=== PATIENT | male | born 1980 | race Two or more races ===

== ENCOUNTER 2022-06-18 07:57 | Emergency (ER) | payer MEDICAID, OTHER, SELFPAY ==
--- NOTE | 2022-06-18 | ECG_ITS ---
Test Reason : sob Blood Pressure : / mmHG Vent. Rate : 074 BPM Atrial Rate : 074 BPM P-R Int : 128 ms QRS Dur : 082 ms QT Int : 372 ms P-R-T Axes : 046 028 026 degrees QTc Int : 412 ms Sinus rhythm with Sinus Arrhythmia Normal ECG No previous ECGs available Referred By: Generic ED Physician Electronically Signed By:MANDA HERRING
--- NOTE | ~2022-06-18 | CT_ITS ---
EXAMINATION: CT ANGIOGRAM OF THE CHEST WITH AND WITHOUT CONTRAST (CT PULMONARY ANGIOGRAM FOR PE) CLINICAL INFORMATION: Sudden onset right posterior chest pain. Rule out pneumonia. COMPARISON: None TECHNIQUE: Prior to contrast administration, noncontrast localization images were obtained. Subsequently, multidetector volumetric imaging was performed from the thoracic inlet to below the diaphragms following the administration of 85 mL Omnipaque 350 intravenous contrast. No contrast reaction reported. Sagittal, coronal, and MIP oblique sagittal reformatted images were obtained on the CT workstation, uploaded to PACS, and reviewed. This CT examination was performed using dose optimization techniques as appropriate, variously including the following: *Automated exposure control *Adjustment of mA and/or kV according to patient size (this includes techniques or standardized protocols for targeted exams where dose is matched to indication/reason for exam; i.e. extremities or head) *Use of iterative reconstruction technique Total exam dose-length product 374 mGy-cm. FINDINGS: QUALITY OF STUDY/CONTRAST BOLUS: Suboptimal. The pulmonary arteries are the least enhanced vascular structures in the chest. PULMONARY ARTERIES: No central or large segmental pulmonary emboli. This study is limited because of the poor contrast bolus. THORACIC AORTA: No aneurysm or dissection. LUNG: A few calcified granulomas are present. No focal consolidation, worrisome nodules or masses. PLEURA: No pleural effusion or pneumothorax. MEDIASTINUM: Normal heart size. No pericardial effusion. No hilar or mediastinal lymphadenopathy. No evidence of septal bowing or right heart strain. CHEST WALL/AXILLA: No axillary or internal mammary lymphadenopathy. OSSEOUS STRUCTURES: No acute or suspicious osseous abnormality. UPPER ABDOMEN: The liver is enlarged and there is marked hepatic steatosis. No reflux of contrast into the hepatic veins to suggest elevated right heart pressures. CT/CT angio chest PE protocol IMPRESSION: 1. Limited study because of poor contrast bolus. No central or large segmental pulmonary emboli are seen. 2. Enlarged fatty liver. VTE: Negative, but limited.
--- NOTE | ~2022-06-18 | CT_ITS ---
EXAMINATION: CT HEAD WITHOUT CONTRAST CLINICAL INFORMATION: Right arm weakness. COMPARISON: None available. TECHNIQUE: Contiguous axial imaging was performed from the skull base to vertex without intravenous administration of contrast. This CT examination was performed using dose optimization techniques as appropriate, variously including the following: *Automated exposure control. *Adjustment of mA and/or kV according to patient size (this includes techniques or standardized protocols for targeted exams where dose is matched to indication/reason for exam; i.e. extremities or head). *Use of iterative reconstruction technique. DLP: 763 mGy-cm FINDINGS: Residual contrast is present from recent CTA of the chest. There is no evidence of acute intracranial hemorrhage or edematous territorial infarction. Lindsey-white matter differentiation is preserved. There is no abnormal attenuation within the brain parenchyma. The ventricles are normal in morphology and size. No evidence for obstructive hydrocephalus. Mild prominence of the CSF space posterior to the left cerebellar hemisphere. No additional abnormal mass effect or midline shift. No extra-axial fluid collections. No acute soft tissue or osseous abnormalities. Moderate mucosal thickening of the right maxillary sinus. Mild mucosal thickening of the remaining paranasal sinuses. The mastoid air cells and middle ear cavities are clear. CT/CT head/brain wo IV con IMPRESSION: No evidence of acute intracranial hemorrhage or edematous territorial infarction.
--- NOTE | ~2022-06-18 | CT_ITS ---
EXAMINATION: CT ABDOMEN AND PELVIS WITH CONTRAST CLINICAL INFORMATION: Sudden onset epigastric, RUQ pain COMPARISON: None TECHNIQUE: Multidetector volumetric images were obtained from the superior aspect of the liver through the pubic symphysis following administration 85 mL of Omnipaque 350 intravenous contrast. Sagittal and coronal reformatted images were obtained on the technologist's workstation. Oral contrast: No This CT examination was performed using dose optimization techniques as appropriate, variously including the following: *Automated exposure control *Adjustment of mA and/or kV according to patient size (this includes techniques or standardized protocols for targeted exams where dose is matched to indication/reason for exam; i.e. extremities or head) *Use of iterative reconstruction technique DLP: 720 mGy-cm FINDINGS: LUNG BASES: The visualized lung bases are unremarkable. LIVER, GALLBLADDER, AND BILIARY TREE: The liver is enlarged at 20 cm in greatest cephalocaudad dimension decreased attenuation consistent with hepatic steatosis. No focal hepatic lesion or biliary ductal dilatation is present. The gallbladder is unremarkable with no evidence of radiopaque gallstones, gallbladder wall thickening, or obvious pericholecystic inflammatory changes. PANCREAS: Unremarkable. SPLEEN: Unremarkable. ADRENAL GLANDS: Unremarkable. KIDNEYS AND URETERS: The kidneys are normal in size, shape, and attenuation. No hydronephrosis, hydroureter, or calculi seen. No perinephric stranding. BLADDER: Unremarkable. GASTROINTESTINAL TRACT: The small and large bowel are unremarkable aside from a few scattered colonic diverticula without diverticulitis. The appendix is unremarkable. ABDOMINAL WALL: No significant hernia is appreciated. LYMPH NODES: No retroperitoneal lymphadenopathy. VASCULAR: Unremarkable. PELVIC VISCERA: The prostate and seminal vesicles are unremarkable. OSSEOUS STRUCTURES: Unremarkable. CT/CT abdomen pelvis w IV con IMPRESSION: 1. Enlarged fatty liver. 2. A cause for the patient's acute epigastric pain has not been found. Fleischner guidelines were followed.
[2022-06-18 08:00] VITALS: BP 173/112; PULSE 84; RESP 18; TEMP 36.9; O2SAT 95; BMI 35.0
[2022-06-18 08:34] LABS: COVID-19 Test Negative (Negative); IDNOW Serial# 9DB6401D
[2022-06-18 09:02] LABS: Influenza A PCR NEGATIVE (Negative); Influenza B PCR NEGATIVE (Negative); Resp Syncy Virus RNA Qual PCR NEGATIVE (Negative); SARS COV2 PCR INHOUSE NEGATIVE (Negative)
--- NOTE | 2022-06-18 09:14 | PC.NURSE ---
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 No respiratory distress noted will CTM
--- NOTE | 2022-06-18 09:32 | PC.NURSE ---
ABD firm non tender no guarding noted BS quad x 4 IV access obtained will CTM
--- NOTE | 2022-06-18 09:43 | ED.GENADULT ---
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 Patient states the pain started suddenly last night at around 22:00 hours while he was lying in bed. He states the pain is a constant, pressure-like pain. The pain is located in his epigastric and right upper quadrant also in his right scapular area. The pain is 8/10. States the pain is been constant, pain is worse if he lies down flat and is also worse with breathing. He does feel short of breath with the pain. This is 1st episode of this type of pain. He did take TheraFlu without any relief. He states that he has had a subjective fever, rhinorrhea and a cough which is occasionally productive of thick white phlegm. He had 1 episode of nausea yesterday but this resolved. He states that since he has been in the emergency department he felt numbness of his right hand but this also resolved. The patient denies any pain or swelling in his lower extremities, he has not had any recent surgeries or gone on any long trips. Related Data Previous Rx's Medication Instructions Recorded lorazepam 1 mg tablet (Ativan) 1 mg PO BEDTIME PRN Anxiety, 06/18/22 insomnia #10 tabs omeprazole 20 mg tablet,delayed 20 mg PO DAILY #30 tabs 06/18/22 release Allergies Allergy/AdvReac Type Severity Reaction Status Date / Time No Known Allergies Allergy Verified 06/18/22 08:06 Review of Systems Review of Systems: Yes all other systems are reviewed and are negative [facility] Past Medical History [facility] Narrative: Past medical history: None. Past surgical history: Kidney stones requiring removal, social history: He denies tobacco use, he drinks alcohol on weekends, he denies drug use. Social History Social History Alcohol intake: unknown Advance Directives: No Advance Directives Information Provided: Yes Physical Exam ED Vital Signs: Vital Signs - 24 hr 06/18/22 08:00 06/18/22 14:22 06/18/22 16:12 Temperature 98.4 F 98.6 F Pulse Rate 84 69 77 Respiratory Rate 18 21 H 18 Blood Pressure 173/112 H 167/79 H 131/89 Pulse Oximetry 95 98 97 Oxygen Delivery Method Room Air Room Air Room Air BMI result Body Mass Index 35.0 Const Other: Awake, alert, male patient, pleasant, cooperative he does appear to be anxious, he has no distress, answers all questions appropriately [facility] Head: Yes normal to inspection, Yes normocephalic and Yes atraumatic Ears: external ears normal General nose exam: Normal external nose present Face and sinus: Yes normal facial exam Mouth: Normal oral and palatal mucosa present Throat: Yes posterior oropharynx normal Eyes General: appearance normal, both eyes and all related structures Pupils: Equal, round and reactive pupils present Neck Neck: Yes normal visual inspection, Yes no lymphadenopathy, Yes trachea midline and Yes supple Chest Other: Patient does have tenderness palpation of his posterior chest around the scapular area Resp Effort & Inspection: normal respiratory effort and able to speak in complete sentences Auscultation: clear to auscultation bilaterally Cardio Rate: regular rate Rhythm: regular rhythm Heart sounds: S1 normal heart sound present, S2 normal heart sound present and no murmurs GI Inspection: Yes normal to inspection Palpation (GI): Soft to palpation, Tenderness to palpation present (GI) in the epigastrum (Moderate) and in the RUQ (Moderate) and no guarding Auscultation: normal bowel sounds General: Yes no CVA tenderness Back/Spine/Pelvis Back: no CVA tenderness Skin General skin exam: no rashes or lesions noted Neuro Cranial nerves: Yes CN's II-XII intact bilaterally and Yes Equal, round and reactive pupils present Cognition (Neuro): normal cognition Motor exam (neuro): 5/5 motor strength present throughout Extrem General: Yes normal to inspection Psych Appearance: grossly normal Speech and movement: Normal speech and movement present Affect: normal affect Attitude: cooperative Thought process: Normal thought process present Thought content: Normal thought content present Medications Administered Discontinued Medications Generic Name Dose Route Start Last Admin Trade Name Freq PRN Reason Stop Dose Admin Sodium Chloride 1,000 mls @ 999 mls/hr 06/18/22 10:00 06/18/22 12:38 Ns IV 06/18/22 11:00 Infused .Q1H1M STA Infusion Iohexol 100 ml 06/18/22 11:30 06/18/22 11:30 Iohexol 350 Mg/Ml 100 Ml Infus..Btl IV 06/18/22 11:31 85 ml ONCE ONE Administration Ketorolac Tromethamine 15 mg 06/18/22 10:00 06/18/22 10:15 Ketorolac Tromethamine 15 Mg/Ml Vial IVPUSH 06/18/22 10:01 15 mg ONCE STA Administration Lorazepam 2 mg 06/18/22 14:38 06/18/22 15:09 Lorazepam 1 Mg Tablet PO 06/18/22 14:39 2 mg ONCE STA Administration Ondansetron HCl 4 mg 06/18/22 10:00 06/18/22 10:15 Ondansetron Hcl 4 Mg/2 Ml Vial IVPUSH 06/18/22 10:01 4 mg ONCE ONE Administration Medical Decision Making Medical Decision Making MDM Narrative: 41-year-old male with no significant past medical history except for kidney stones who presents emergency department for evaluation of sudden onset of epigastric, right upper quadrant and right posterior chest pain at 22:00 hours while he was at rest. The pain is been a constant pain, 8/10. The pain is worse with breathing and is also worse with lying down flat. I ordered a CBC, CMP, CK, D-dimer, lipase, PT/INR, PTT, troponin, EKG, CT scan of the chest PE protocol, CT scan of the abdomen pelvis IV contrast. Patient was ordered to get ibuprofen 15 mg IV and Zofran 4 mg IV. I also ordered normal saline x1 L. 1624: Laboratory/radiology interpretation by me as follows: CBC was normal, CMP revealed an elevated AST and ALT of 7163, troponin was below detectable limits, flu, RSV and COVID were negative, D-dimer was below detectable limits. CT angiogram PE protocol chest and CT abdomen pelvis with IV contrast did not reveal a clear etiology for the patient's symptoms. When I review these results with the patient patient seemed to become anxious and told me that he had a fall struck his head and concerned that he has bleeding his brain. He states the cyst has he feels like his arms are twitching control controlled. CT scan of the patient's head was negative. Patient did receive Ativan 2 mg orally with some improvement of his symptoms. This time the patient will be treated for gastritis with omeprazole 20 mg once a day for 1 month and anxiety with Ativan 1 mg at night for 1 week. I did discuss this plan with the patient he agrees with the treatment. Patient will be discharged home. Differential Diagnosis Differential diagnosis includes but is not limited to pulmonary embolism, myocardial infarction, myocardial ischemia, kidney stone, biliary disease. Lab Data Result Diagrams: 06/18/22 10:15 06/18/22 10:15 Labs: Lab Results 06/18/22 06/18/22 06/18/22 Range/Units 08:15 08:15 10:15 WBC 5.8 (4.8-10.8) X10*3/uL RBC 4.74 (4.60-5.80) X10*6/uL Hgb 15.7 (14.0-18.0) g/dl Hct 45.2 (42.0-52.0) % MCV 95.4 (80.0-98.0) fL MCH 33.1 H (27.0-33.0) pg MCHC 34.7 (31.0-36.0) g/dl RDW 12.4 (11.0-16.0) % Plt Count 329 (160-400) X10*3/uL MPV 10.1 (9.4-12.4) fL Immature Gran % (Auto) 0.2 (0.0-0.4) % Neut % (Auto) 68.2 (45-73) % Lymph % (Auto) 23.2 (20-40) % [place] % (Auto) 7.2 (2-11) % Eos % (Auto) 0.5 (0-4) % Baso % (Auto) 0.7 (0-2) % Lymph # (Auto) 1.4 (1.2-4.9) X10*3/uL [place] # (Auto) 0.4 (0.1-1.2) X10*3/uL Eos # (Auto) 0.0 (0.0-0.4) X10*3/uL Baso # (Auto) 0.0 (0.0-0.2) X10*3/uL Abs Immat Gran (auto) 0.01 (0.00-0.03) X10*3/uL Absolute Neuts (auto) 4.0 (2.0-8.3) x10*3/uL Absolute Nucleated RBC 0.000 (0.0-0.012) X10*3/uL Nucleated RBC % (auto) 0.0 (0.0-0.2) /100WBC PT (10.0-13.1) SEC INR (0.9-1.1) APTT (26.0-36.4) SEC D-Dimer High Sensitivty NG/ML Sodium (135-145) mmol/L Potassium (3.3-5.1) mmol/L Chloride (96-108) mmol/L Carbon Dioxide (22-29) mmol/L Anion Gap (12-20) BUN (9-16) mg/dL Creatinine (0.5-1.4) mg/dL Estim Creat Clear Calc Estimated GFR Random Glucose (60-115) mg/dL Calcium (8.4-10.2) mg/dL Total Bilirubin (0.0-1.0) mg/dL AST (5-37) U/L ALT (0-40) U/L Alkaline Phosphatase (39-117) U/L Total Creatine Kinase (38-174) U/L Troponin I High Sens (<3.5-35.0) ng/L Total Protein (6.5-8.0) g/dL Albumin (3.5-5.0) g/dL Lipase (8-78) U/L COVID-19 ([facility]) Negative (Negative) COVID-19 Clin Com See Note Influenza Type A (PCR) NEGATIVE (Negative) Influenza Type B (PCR) NEGATIVE (Negative) RSV RNA Qual (PCR) NEGATIVE (Negative) SARS-CoV-2 RNA (RT-PCR) NEGATIVE (Negative) 06/18/22 06/18/22 06/18/22 Range/Units 10:15 10:15 10:15 WBC (4.8-10.8) X10*3/uL RBC (4.60-5.80) X10*6/uL Hgb (14.0-18.0) g/dl Hct (42.0-52.0) % MCV (80.0-98.0) fL MCH (27.0-33.0) pg MCHC (31.0-36.0) g/dl RDW (11.0-16.0) % Plt Count (160-400) X10*3/uL MPV (9.4-12.4) fL Immature Gran % (Auto) (0.0-0.4) % Neut % (Auto) (45-73) % Lymph % (Auto) (20-40) % [place] % (Auto) (2-11) % Eos % (Auto) (0-4) % Baso % (Auto) (0-2) % Lymph # (Auto) (1.2-4.9) X10*3/uL [place] # (Auto) (0.1-1.2) X10*3/uL Eos # (Auto) (0.0-0.4) X10*3/uL Baso # (Auto) (0.0-0.2) X10*3/uL Abs Immat Gran (auto) (0.00-0.03) X10*3/uL Absolute Neuts (auto) (2.0-8.3) x10*3/uL Absolute Nucleated RBC (0.0-0.012) X10*3/uL Nucleated RBC % (auto) (0.0-0.2) /100WBC PT 10.7 (10.0-13.1) SEC INR 0.9 (0.9-1.1) APTT 33.2 (26.0-36.4) SEC D-Dimer High Sensitivty < 150 NG/ML Sodium 139 (135-145) mmol/L Potassium 4.0 (3.3-5.1) mmol/L Chloride 105 (96-108) mmol/L Carbon Dioxide 24 (22-29) mmol/L Anion Gap 14 (12-20) BUN 10 (9-16) mg/dL Creatinine 0.83 (0.5-1.4) mg/dL Estim Creat Clear Calc 120.1 Estimated GFR > 60 Random Glucose 116 H (60-115) mg/dL Calcium 9.9 (8.4-10.2) mg/dL Total Bilirubin 1.3 H (0.0-1.0) mg/dL AST 71 H (5-37) U/L ALT 63 H (0-40) U/L Alkaline Phosphatase 54 (39-117) U/L Total Creatine Kinase 598 H (38-174) U/L Troponin I High Sens < 3.5 (<3.5-35.0) ng/L Total Protein 7.7 (6.5-8.0) g/dL Albumin 4.7 (3.5-5.0) g/dL Lipase 86 H (8-78) U/L COVID-19 ([facility]) (Negative) COVID-19 Clin Com Influenza Type A (PCR) (Negative) Influenza Type B (PCR) (Negative) RSV RNA Qual (PCR) (Negative) SARS-CoV-2 RNA (RT-PCR) (Negative) Independent Interpretation I performed an independent interpretation of an: EKG Interpretation: My independent interpretation of the EKG done at 0807: Normal sinus rhythm with a rate of 74, PACs, no PVCs, normal OK, QRS and QTC interval, no ST segment elevation, no ST segment depression, no OK depression this is a normal EKG. External Record Review External record reviewed: Other ([place] prescription monitoring program-no controlled prescriptions noted) Discharge Plan Discharge Clinical Impression: Anxiety Gastritis Qualifiers: Gastritis type: unspecified gastritis Chronicity: acute Gastritis bleeding: without bleeding Qualified Code(s): K29.00 - Acute gastritis without bleeding Patient Disposition: Still a Patient Additional Instructions: Your laboratory evaluation was unremarkable. The CT scans of your head, chest, abdomen pelvis were normal which is reassuring. At this time I believe that your stomach and chest pain is caused by your stomach making too much acid and causing inflammation of your stomach (gastritis). Take Prilosec (omeprazole) 20 mg pills, 1 pill once a day for 1 month. This medication shuts off your acid production and lets the inflammation in your stomach and esophagus heal. Take Ativan 1 mg pills, 1 pill every at night to help with sleep and anxiety. This medication will make you sleepy, do not drive or work while taking this medication. This medication can be addicting, if your concerned about addiction you can ask the pharmacist for less medications or do not get the prescription filled. Follow-up with your doctor in 2 days. Please return to the emergency department if your symptoms get worse or if you develop any symptoms that are concerning to you. Prescriptions: New lorazepam [Ativan] 1 mg tablet 1 mg PO BEDTIME PRN (Reason: Anxiety, insomnia) Qty: 10 0RF Rx Instructions: Patient may request partial fill omeprazole 20 mg tablet,delayed release (DR/EC) 20 mg PO DAILY Qty: 30 0RF Print Language: Palestinian
[2022-06-18] MEDS: Ketorolac Tromethamine 15 MG/ML VIAL IVPUSH (10:15)
[2022-06-18] MEDS: 0.9 % Sodium Chloride 1,000 ML 999 ML IV (10:15)
[2022-06-18] MEDS: ondansetron HCL 4 MG/2 ML VIAL IVPUSH (10:15)
[2022-06-18 10:20] LABS: MANUAL DIFF FLAG NO
[2022-06-18 10:22] LABS: Hematocrit 45.2 % (42.0-52.0); Hemoglobin 15.7 g/dl (14.0-18.0); Mean Corpuscular Volume 95.4 fL (80.0-98.0); Red Blood Count 4.74 X10*6/uL (4.60-5.80); White Blood Count 5.8 X10*3/uL (4.8-10.8)
[2022-06-18 10:23] LABS: Basophils Percent Auto 0.7 % (0-2); Eosinophils Percent Auto 0.5 % (0-4); Imm Gran Abs Auto 0.01 X10*3/uL (0.00-0.03); Imm Gran Pct Auto 0.2 % (0.0-0.4); Lymphocytes Absolute Auto 1.4 X10*3/uL (1.2-4.9); Lymphocytes Percent Auto 23.2 % (20-40); Mean Corpuscular HGB Conc 34.7 g/dl (31.0-36.0); Mean Corpuscular Hemoglobin 33.1 pg (27.0-33.0); Mean Platelet Volume 10.1 fL (9.4-12.4); Monocytes Absolute Auto 0.4 X10*3/uL (0.1-1.2); Monocytes Percent Auto 7.2 % (2-11); Neutrophils Percent Auto 68.2 % (45-73); Platelet Count 329 X10*3/uL (160-400); Red Cell Distribution Width 12.4 % (11.0-16.0)
[2022-06-18 10:32] LABS: INTERNATIONAL NORM RATIO 0.9 (0.9-1.1); Prothrombin Time 10.7 SEC (10.0-13.1)
[2022-06-18 10:34] LABS: Partial Thromboplastin Time 33.2 SEC (26.0-36.4)
[2022-06-18 10:39] LABS: Alanine Aminotransferase 63 U/L (0-40); Albumin Level 4.7 g/dL (3.5-5.0); Alkaline Phosphatase 54 U/L (39-117); Anion Gap 14 (12-20); Aspartate Amino Transferase 71 U/L (5-37); Bilirubin Total 1.3 mg/dL (0.0-1.0); Blood Urea Nitrogen 10 mg/dL (9-16); Calcium 9.9 mg/dL (8.4-10.2); Carbon Dioxide 24 mmol/L (22-29); Chloride 105 mmol/L (96-108); Creatinine Clr Calc Pharmacy 120.1; Estimated Glomerular Filt Rate > 60; Glucose Random 116 mg/dL (60-115); Lipase 86 U/L (8-78); Sodium 139 mmol/L (135-145); Total Protein 7.7 g/dL (6.5-8.0)
[2022-06-18 10:50] LABS: D Dimer High Sensitivity < 150 NG/ML
[2022-06-18 10:51] LABS: Troponin-I High Sensitivity < 3.5 ng/L (<3.5-35.0)
[2022-06-18] MEDS: iohexoL 350 MG/ML 100 ML INFUS..BTL IV (11:30)
[2022-06-18 14:22] VITALS: BP 167/79; PULSE 69; RESP 21; TEMP 37; O2SAT 98
--- NOTE | 2022-06-18 14:48 | PC.NURSE ---
Patient to CT
[2022-06-18] MEDS: LORazepam 1 MG TABLET 2 MG PO (15:09)
[2022-06-18 16:12] VITALS: BP 131/89; PULSE 77; RESP 18; O2SAT 97
== END 2022-06-18 17:09 | disposition still patient (30) ==
PROVIDERS: Emergency Provider Emergency Medicine Emergency Medical Services
DX: F41.1 Generalized anxiety disorder (principal); K29.00 Acute gastritis without bleeding; F43.0 Acute stress reaction; R06.02 Shortness of breath; R10.11 Right upper quadrant pain; R07.89 Other chest pain; R51.9 Headache, unspecified; R50.9 Fever, unspecified; J34.89 Other specified disorders of nose and nasal sinuses; Z20.822 Contact with and (suspected) exposure to COVID-19; Z79.899 Other long term (current) drug therapy
CPT/HCPCS: 0241U; 36415; 70450; 71275; 74177; 80053; 82550; 83690; 84484; 85025; 85379; 85610; 85730; 87635; 93005; 96361; 96374; 96375; 99284; 99285; J1885; J2405; Q9967

== ENCOUNTER 2024-09-11 06:57 | Emergency (ER) | payer MEDICAID, OTHER, SELFPAY ==
--- NOTE | ~2024-09-11 | XR_ITS ---
EXAMINATION: XR CHEST CLINICAL INFORMATION: cough/fever COMPARISON: Correlated to CT chest PA protocol dated June 18, 2022. TECHNIQUE: 2 views of the chest were obtained. FINDINGS: No consolidation, pleural effusion or pneumothorax. No hyperinflation. Cardiomediastinal silhouette size is normal. Mild multilevel thoracic spondylosis. XR/XR chest 2V IMPRESSION: No acute airspace disease. Electronically signed by: Shakir Masters MD 09/11/2024 07:52 AM EDT
[2024-09-11 07:07] VITALS: BP 145/99; PULSE 91; RESP 22; TEMP 37.4; O2SAT 96; BMI 34.8
[2024-09-11 08:22] LABS: Influenza A PCR NEGATIVE (Negative); Influenza B PCR POSITIVE (Negative); Resp Syncy Virus RNA Qual PCR NEGATIVE (Negative); SARS COV2 PCR INHOUSE NEGATIVE (Negative)
--- NOTE | 2024-09-11 08:24 | ED.URI ---
HPI - URI/Sore Throat General Chief Complaint: Upper Respiratory Symptoms Stated Complaint: Flue Symptoms Time Seen by Provider: 09/11/24 07:19 Source: patient and sign language interpreter (Bruneian) Mode of arrival: ambulatory Limitations: language barrier (Bruneian) History of Present Illness ED Provider: LUCY PERRIN PA-C HPI Narrative: 44 year old qatari speaking male with no significant pmhx presents to the ED today for evaluation of subjective fevers, dry cough and chest wall pain x3 days. No known sick contacts. Denies headache, chills, sore throat, nausea or vomiting, chest pain, palpitations, shortness of breath, wheezing, dyspnea, nausea or vomiting, abdominal pain, constipation or diarrhea. vaccinations utd. no recent travel. Related Data Previous Rx's ?Medication ?Instructions ?Recorded lorazepam 1 mg tablet (Ativan) 1 mg PO BEDTIME PRN Anxiety, 06/18/22 insomnia #10 tabs omeprazole 20 mg tablet,delayed 20 mg PO DAILY #30 tabs 06/18/22 release benzonatate 100 mg capsule 100 mg PO BID PRN cough #20 caps 09/11/24 Allergies Allergy/AdvReac Type Severity Reaction Status Date / Time No Known Allergies Allergy Verified 09/11/24 07:14 Review of Systems Review of Systems: Yes all other systems are reviewed and are negative PMFSH Past Medical History Attestation statement: The following information was validated with the patient. Source: old records reviewed and nursing notes reviewed Social History Social History Alcohol intake: unknown Advance Directives: No Advance Directives Information Provided: Yes Physical Exam Vital Signs: Vital Signs: Last Vital Signs Temp 98.7 F 09/11/24 08:37 Pulse 87 09/11/24 08:37 Resp 18 09/11/24 08:37 BP 141/93 H 09/11/24 08:37 Pulse Ox 97 09/11/24 08:37 O2 Del Method Room Air 09/11/24 08:37 BMI result Body Mass Index 34.8 hypertensive, tachypneic General: Well appearing, in no acute distress. Skin: Warm, dry, intact. No rashes or lesions. Head: Normocephalic, atraumatic. EENT: Hearing is intact b/l. Conjunctiva clear. PERRLA. EOM intact. Moist mucous membranes.? Neck: Supple without LAD Cardiac: Chest wall symmetric. RRR. No JVD. Lungs: Normal respiratory effort without accessory muscle use. CTA bilaterally. No rales, rhonchi, or wheezes.? Abdomen: Soft, non-tender, non-distended. No rebound tenderness or guarding. Positive BS x4. Ext: Upper and lower extremities atraumatic, without tenderness, deformity, swelling or erythema Neuro: AOx3. Normal speech. Ambulating with steady gait. Course Course Course Narrative: 0845 -- Patient tested positive for influenza B. Negative for COVID, RSV. Chest x-ray does not demonstrate infiltrate or consolidation to suggest pneumonia. No effusion. > vital signs stable. Not hypoxic. Well-appearing. Lady Webber sent to pharmacy for treatment. Patient has remained stable throughout ED visit today. Discussed worrisome signs and symptoms and when to return to the ED. All questions answered at this time. Patient is agreeable with disposition and stable for discharge. Medical Decision Making Medical Decision Making [facility] Narrative: 44 year old qatari speaking male with no significant pmhx presents to the ED today for evaluation of subjective fevers, dry cough and chest wall pain x3 days. hypertensive, tachypneic. afebrile. not hypoxic. he is nontoxic appearing and in NAD. No noted respiratory distress. No tripoding. Lungs are without adventitious breath sounds. No noted cough. RRR. No pitting edema. No JVD. No calf tenderness bilaterally. Differential diagnosis includes viral syndrome, bronchitis, pneumonia. Presentation not consistent with chronic causes of cough (including GERD, asthma, postnasal discharge, medication side effect, CHF, lung cancer or mass). Plan: viral testing, CXR, supportive care, reassessment Differential Diagnosis Differential Diagnoses: The differential diagnosis associated with the presentation includes As above Admission/Observation Not indicated Lab Data [facility] Lab Attestation statement: I reviewed the patient's lab results. As above Labs: Lab Results 09/11/24 Range/Units 07:26 Influenza Type A (PCR) NEGATIVE (Negative) Influenza Type B (PCR) POSITIVE A (Negative) RSV RNA Qual (PCR) NEGATIVE (Negative) SARS-CoV-2 RNA (RT-PCR) NEGATIVE (Negative) Independent Interpretation I performed an independent interpretation of an: Plain X-Ray Interpretation: Chest x-ray without infiltrate or consolidation Radiology Impression Discussion of test interpretation with radiology: I have reviewed the radiologist's reading. Radiologist Impression: Date of Service: 09/11/24 Procedure(s): XR chest 2V Accession Number(s): [id number] cc: Charity Silva DO; Physician,None ~ EXAMINATION: XR CHEST CLINICAL INFORMATION: cough/fever COMPARISON: Correlated to CT chest PA protocol dated June 18, 2022. TECHNIQUE: 2 views of the chest were obtained. FINDINGS: No consolidation, pleural effusion or pneumothorax. No hyperinflation. Cardiomediastinal silhouette size is normal. Mild multilevel thoracic spondylosis. XR/XR chest 2V IMPRESSION: No acute airspace disease. Electronically signed by: Shakir Masters MD 09/11/2024 07:52 AM EDT External Record Review External record reviewed: Inpatient record Prescription Management I considered prescription management with: Other ([place]) Social Determinants Patient?s care significantly limited by Social Determinants of Health including: Other Social Determinant of Health Critical Care Time Critical Care Time Critical Care Time: No Discharge Plan Discharge Clinical Impression: Influenza B Patient Disposition: Home, Self-Care Instructions: Influenza (ED) Additional Instructions: Today you tested positive for influenza. Take Ibuprofen or Tylenol as needed for fevers or body aches.? I have sent lady webber to your pharmacy for your cough. Practice social distancing and good hand hygiene. Drink plenty of fluids. Follow-up with your primary care provider this week. Return to the emergency department with new or worsening symptoms. In case of emergency call 911. You can purchase a pulse oximeter from your local pharmacy or grocery store, and monitor your oxygen saturation if it goes below 94% you should return to the emergency department for further evaluation. Prescriptions: New benzonatate 100 mg capsule 100 mg PO BID PRN (Reason: cough) Qty: 20 0RF No Action lorazepam [Ativan] 1 mg tablet 1 mg PO BEDTIME PRN (Reason: Anxiety, insomnia) Qty: 10 0RF Rx Instructions: Patient may request partial fill omeprazole 20 mg tablet,delayed release (DR/EC) 20 mg PO DAILY Qty: 30 0RF Referrals: Physician,None [Primary Care Provider] - Stand Alone Forms: Work/School Release Print Language: Bruneian
[2024-09-11 08:37] VITALS: BP 141/93; PULSE 87; RESP 18; TEMP 37.1; O2SAT 97
[2024-09-11 08:57] VITALS: BP 141/93; PULSE 87; RESP 18; TEMP 37.1; O2SAT 97
== END 2024-09-11 08:57 | disposition home or self-care (01) ==
PROVIDERS: Emergency Provider Emergency Medicine
DX: J10.1 Influenza due to other identified influenza virus with other respiratory manifestations (principal); R05.9 Cough, unspecified; Z03.818 Encounter for observation for suspected exposure to other biological agents ruled out
CPT/HCPCS: 0241U; 71046; 99282; 99283

== ENCOUNTER → 2024-09-11 07:16 | Outpatient (BNV) | payer MEDICAID, SELFPAY | PROVIDERS: Emergency Provider Emergency Medicine; Visit Provider Radiology Diagnostic Radiology | DX: R05.9 Cough, unspecified (principal); R50.9 Fever, unspecified | CPT/HCPCS: 71046 ==

== ENCOUNTER 2024-11-16 07:59 | Emergency (ER) | payer MEDICAID, OTHER, SELFPAY ==
--- NOTE | 2024-11-16 | ECG_ITS ---
Test Reason : syncope Blood Pressure : */* mmHG Vent. Rate : 76 BPM Atrial Rate : 76 BPM P-R Int : 142 ms QRS Dur : 84 ms QT Int : 372 ms P-R-T Axes : 40 33 11 degrees QTcB Int : 418 ms Sinus rhythm with Premature atrial complexes Otherwise normal ECG When compared with ECG of 18-Jun-2022 08:07, No significant change was found Referred By: Generic ED Physician Electronically Signed By: MANDA HERRING
--- NOTE | ~2024-11-16 | CT_ITS ---
EXAMINATION: CT HEAD WITHOUT CONTRAST CLINICAL INFORMATION: Dizziness COMPARISON: June 18, 2022 TECHNIQUE: Contiguous axial imaging was performed from the skull base to vertex without intravenous administration of contrast. This CT examination was performed using dose optimization techniques as appropriate, variously including the following: *Automated exposure control *Adjustment of mA and/or kV according to patient size (this includes techniques or standardized protocols for targeted exams where dose is matched to indication/reason for exam; i.e. extremities or head) *Use of iterative reconstruction technique DLP: 684 mGY*cm FINDINGS: There is no acute ischemic change. There is no intracranial hemorrhage. There is no mass-effect or midline shift. Basal cisterns and ventricles are within normal limits for size. Paranasal sinuses are clear. CT/CT head/brain wo IV con IMPRESSION: No acute intracranial abnormality. Electronically signed by: Luis Parmar MD 11/16/2024 01:29 PM EDT
--- NOTE | ~2024-11-16 | XR_ITS ---
EXAMINATION: XR CHEST CLINICAL INFORMATION: rib pain COMPARISON: 09/11/2024. TECHNIQUE: 2 views of the chest were obtained. FINDINGS: The cardiac, hilar, and mediastinal contours are normal. The lungs are clear bilaterally. There is no pneumothorax or pleural effusion. There is no focal osseous or soft tissue abnormality. Ribs appear intact without fracture. XR/XR chest 2V IMPRESSION: No acute findings. No active pulmonary disease. Electronically signed by: Stephen Ochoa MD 11/16/2024 12:00 PM EDT
[2024-11-16 08:04] VITALS: BP 148/95; PULSE 85; RESP 18; TEMP 36.7; O2SAT 96; BMI 39.1
[2024-11-16 08:45] LABS: Hematocrit 44.1 % (42.0-52.0); Mean Corpuscular HGB Conc 36.3 g/dl (31.0-36.0); Mean Corpuscular Hemoglobin 33.3 pg (27.0-33.0); Mean Corpuscular Volume 91.7 fL (80.0-98.0); Mean Platelet Volume 10.4 fL (9.4-12.4); Platelet Count 280 X10*3/uL (160-400); Red Blood Count 4.81 X10*6/uL (4.60-5.80); Red Cell Distribution Width 12.2 % (11.0-16.0); White Blood Count 6.2 X10*3/uL (4.8-10.8)
[2024-11-16 09:01] LABS: Alanine Aminotransferase 63 U/L (0-40); Albumin Level 4.4 g/dL (3.5-5.0); Alkaline Phosphatase 77 U/L (39-117); Anion Gap 16 (12-20); Aspartate Amino Transferase 36 U/L (5-37); Blood Urea Nitrogen 10 mg/dL (9-16); Calcium 9.8 mg/dL (8.4-10.2); Carbon Dioxide 26 mmol/L (22-29); Chloride 99 mmol/L (96-108); Creatinine Clr Calc Pharmacy 119.2; Estimated Glomerular Filt Rate > 60; Glucose Random 317 mg/dL (60-115); Magnesium 2.1 mg/dL (1.6-2.6); Potassium 4.1 mmol/L (3.3-5.1); Sodium 137 mmol/L (135-145); Total Protein 7.8 g/dL (6.5-8.0)
[2024-11-16 10:07] VITALS: BP 147/101; PULSE 70; RESP 18; TEMP 36.6; O2SAT 96
[2024-11-16 10:29] LABS: Glucose, Whole Blood 286 mg/dL (60-115)
[2024-11-16 10:33] VITALS: BP 128/82; BP 136/89; PULSE 64; PULSE 65
[2024-11-16 10:34] VITALS: BP 129/85; PULSE 83
[2024-11-16] MEDS: 0.9 % Sodium Chloride 1,000 ML 999 ML IV (10:36)
[2024-11-16 10:39] LABS: Appearance Urine Clear; Color Urine Yellow; Glucose Urine UA >=1000 mg/dL (Negative); Leukocyte Esterase Urine Negative (Negative); Nitrite Urine Negative (Negative); Specific Gravity - Urine >= 1.030 (1.005-1.025); UMIC TRIGGER UACC YES; Urine Blood Negative (Negative); Urine Ketones 80 mg/dL (Negative); Urine Protein 30 (1+) mg/dL (Neg-Trace)
[2024-11-16 10:43] LABS: INTERNATIONAL NORM RATIO 0.9 (0.9-1.1); Prothrombin Time 10.4 SEC (10.9-12.4)
[2024-11-16 10:47] LABS: D Dimer High Sensitivity < 150 NG/ML
[2024-11-16 10:51] LABS: Bacteria Urine None Seen (None Seen); Hyaline Casts Urine 0-2 /LPF (0-2); RBC Urine 0-2 /HPF (0-2); Squamous Epithelial Cell Urine 0-2 /HPF (0-2); WBC Urine 0-5 /HPF (0-5)
--- NOTE | 2024-11-16 10:53 | ED.GENADULT ---
HPI - General Adult General Chief complaint: General Medical Stated complaint: Dizziness, R side pain Time Seen by Provider: 11/16/24 09:51 Source: patient Mode of arrival: ambulatory Limitations: no limitations History of Present Illness ED Provider: Georgi Cheney HPI narrative: 44-year-old female with no pmh presents to the ED for mutliple complaints. Patient states increase thirst, increse urinary frequency, 20 pounds weight loss for the past 1 month. Patient states feeling dizzy like the room spinning for the past 3 days. patient denies ever passing out or losing consciousness. patient denies any chest pain, shortness of breath, slurred speech, facial droop, or paralysis of extremities. Patient secondary complaint is right rib pain that is worse on movement. patient denies any pleurisy, recent long travel, recent surgery, calf pain, coughing up blood, shortness of breath, or crushing chest pain. patient states at work he does heavy lifting and movement of his torso. Related Data Previous Rx's ?Medication ?Instructions ?Recorded lorazepam 1 mg tablet (Ativan) 1 mg PO BEDTIME PRN Anxiety, 06/18/22 insomnia #10 tabs omeprazole 20 mg tablet,delayed 20 mg PO DAILY #30 tabs 06/18/22 release benzonatate 100 mg capsule 100 mg PO BID PRN cough #20 caps 09/11/24 metformin 500 mg tablet 500 mg PO BID 30 days #60 tabs 11/16/24 Allergies Allergy/AdvReac Type Severity Reaction Status Date / Time No Known Allergies Allergy Verified 11/16/24 08:11 Review of Systems Review of Systems: Weight loss, polydipsia, polyuria, and dizziness Yes all other systems are reviewed and are negative [facility] Social History Social History Alcohol intake: unknown Smoked in Last 30 Days: No Use of substances other than those prescribed or required for medical reasons: No Advance Directives: No Advance Directives Information Provided: Yes Physical Exam ED Vital Signs: Vital Signs - 24 hr 11/16/24 08:04 11/16/24 10:07 11/16/24 10:33 Temperature 98.0 F 97.9 F Pulse Rate 85 70 64 Respiratory Rate 18 18 Blood Pressure 148/95 H 147/101 H 128/82 Pulse Oximetry 96 96 Oxygen Delivery Method Room Air Room Air 11/16/24 10:33 11/16/24 10:34 11/16/24 14:57 Temperature 98.5 F Pulse Rate 65 83 83 Respiratory Rate 18 Blood Pressure 136/89 129/85 129/85 Pulse Oximetry 98 Oxygen Delivery Method Room Air 11/16/24 14:58 Temperature 98.5 F Pulse Rate 83 Respiratory Rate 18 Blood Pressure 129/85 Pulse Oximetry 98 Oxygen Delivery Method Room Air BMI result Body Mass Index 39.1 Const General: cooperative, healthy appearing, comfortable, no acute distress, well developed, alert, awake and Physically active Orientation/consciousness: patient oriented x3 [facility] Head: Yes normal to inspection, Yes No palpable skull fracture present, Yes normocephalic and Yes atraumatic Ears: hearing grossly normal bilaterally, external ears normal, TM's normal bilaterally, TM normal on the right, TM normal on the left, EAC's normal, mastoids normal and no periauricular adenopathy Eyes General: appearance normal, both eyes and all related structures Neck Neck: Yes normal visual inspection, Yes full ROM, Yes no lymphadenopathy, Yes no meningeal signs, Yes trachea midline, Yes supple, No anterior neck swelling and No tender Chest Chest palpation & inspection: normal inspection of the chest and normal palpation of entire chest wall Resp Effort & Inspection: normal respiratory effort and able to speak in complete sentences Auscultation: clear to auscultation bilaterally Cardio Jugular venous distension: no JVD Heart sounds: S1 normal heart sound present and S2 normal heart sound present GI Inspection: Yes normal to inspection Palpation (GI): Soft to palpation, not firm, nontender, no guarding and not rigid General: Yes no CVA tenderness Back/Spine/Pelvis Back: no CVA tenderness and No back tenderness Skin General skin exam: no rashes or lesions noted, elasticity normal and turgor normal Neuro General: patient oriented x3, gait normal, tone normal, moves all extremities, Normal light touch and pain sensation, no meningeal signs, no focal motor deficits, CN's II-XI intact bilaterally and normal sensation to monofilament Extrem General: Yes normal to inspection, Yes full ROM and Yes capillary refill normal Psych Appearance: grossly normal, well kempt and not disheveled NIH Stroke Scale Internal: Initial- Upon Arrival Level of Consciousness: Alert Level of Consciousness Questions: Answers both questions correctly Level of Consciousness Commands: Performs both tasks correctly Best Gaze: Normal Visual: No visual loss Facial Palsy: Normal Motor Arm (Right): No drift Motor Arm (Left): No drift Motor Leg (Right): No drift Motor Leg (Left): No drift Limb Ataxia: Absent Sensory: Normal Best Language: No aphasia Dysarthia: Normal Extinction and Inattention: No abnormality Score: 0 Medications Administered Discontinued Medications Generic Name Dose Route Start Last Admin Trade Name Loyda PRN Reason Stop Dose Admin Sodium Chloride 1,000 mls @ 999 mls/hr 11/16/24 10:20 11/16/24 11:43 Ns IV 11/16/24 11:20 Infused .Q1H1M STA Infusion Medical Decision Making Medical Decision Making [facility] Narrative: 44-year-old male presents to ED with complaints of dizziness polydipsia polyuria and weight loss of 20 lb. Labs shows possibly new diabetic. Patient is unaware of any history of diabetes. Glucose serum 317. NIH score is 0. We will give fluids. Your show glucose a 1000 ketones 80. Patient is not in DKA. No need for give insulin. Due to patient states right rib pain for the past 2 weeks that is worse with movement D-dimer was sent was negative to make sure there is no risk of PE. Patient denies any pleurisy, recent long travel, recent surgery, coughing up blood, calf pain or leg swelling. Orthostatics negative. 2:25pm: Patient's head CT scan normal. Patient's glucose improved with fluids. Patient is not in DKA. Patient will be discharged with metformin. Hemoglobin A1c 14%. Patient given information to follow up with [facility] for management of diabetes. Not suspecting PE, D-dimer negative. Not suspecting [place], stroke, myocarditis, hyperosmolar hyperglycemia, DKA or any other life-threatening etiology. Patient explained worrisome signs and informed to return to the ED immediately Differential Diagnosis Differential Diagnoses: The differential diagnosis associated with the presentation includes (Diabetes UTI) Admission/Observation Consideration of admission/observation: Escalation of care including admission/observation considered Lab Data [facility] Lab Attestation statement: I reviewed the patient's lab results. 11/16/24 08:36 11/16/24 08:36 Labs: Lab Results 11/16/24 11/16/24 11/16/24 Range/Units 08:36 10:22 10:26 WBC 6.2 (4.8-10.8) X10*3/uL RBC 4.81 (4.60-5.80) X10*6/uL Hgb 16.0 (14.0-18.0) g/dl Hct 44.1 (42.0-52.0) % MCV 91.7 (80.0-98.0) fL MCH 33.3 H (27.0-33.0) pg MCHC 36.3 H (31.0-36.0) g/dl RDW 12.2 (11.0-16.0) % Plt Count 280 (160-400) X10*3/uL MPV 10.4 (9.4-12.4) fL Absolute Nucleated RBC 0.000 (0.0-0.012) X10*3/uL Nucleated RBC % (auto) 0.0 (0.0-0.2) /100WBC PT (10.9-12.4) SEC INR (0.9-1.1) APTT (26.0-36.8) SEC D-Dimer High Sensitivty NG/ML Sodium 137 (135-145) mmol/L Potassium 4.1 (3.3-5.1) mmol/L Chloride 99 (96-108) mmol/L Carbon Dioxide 26 (22-29) mmol/L Anion Gap 16 (12-20) BUN 10 (9-16) mg/dL Creatinine 0.80 (0.5-1.4) mg/dL Estim Creat Clear Calc 119.2 Estimated GFR > 60 POC Glucose 286 H (60-115) mg/dL Random Glucose 317 H (60-115) mg/dL Estimat Average Glucose Hemoglobin A1c % (<6.0) % Calcium 9.8 (8.4-10.2) mg/dL Magnesium 2.1 (1.6-2.6) mg/dL Total Bilirubin 1.0 (0.0-1.0) mg/dL AST 36 (5-37) U/L ALT 63 H (0-40) U/L Alkaline Phosphatase 77 (39-117) U/L Troponin I High Sens (<3.5-35.0) ng/L Total Protein 7.8 (6.5-8.0) g/dL Albumin 4.4 (3.5-5.0) g/dL Urine Color Yellow Urine Appearance Clear Urine pH 6.0 (5.0-9.0) Ur Specific [place] >= 1.030 H (1.005-1.025) Urine Protein 30 (1+) H (Neg-Trace) mg/dL Urine Glucose (UA) >=1000 H (Negative) mg/dL Urine Ketones 80 (Negative) mg/dL Urine Blood Negative (Negative) Urine Nitrite Negative (Negative) Ur Leukocyte Esterase Negative (Negative) Urine RBC 0-2 (0-2) /HPF Urine WBC 0-5 (0-5) /HPF Ur Squamous Epith Cells 0-2 (0-2) /HPF Urine Bacteria None Seen (None Seen) Hyaline Casts 0-2 (0-2) /LPF 11/16/24 11/16/24 11/16/24 Range/Units 10:29 12:22 12:25 WBC (4.8-10.8) X10*3/uL RBC (4.60-5.80) X10*6/uL Hgb (14.0-18.0) g/dl Hct (42.0-52.0) % MCV (80.0-98.0) fL MCH (27.0-33.0) pg MCHC (31.0-36.0) g/dl RDW (11.0-16.0) % Plt Count (160-400) X10*3/uL MPV (9.4-12.4) fL Absolute Nucleated RBC (0.0-0.012) X10*3/uL Nucleated RBC % (auto) (0.0-0.2) /100WBC PT 10.4 L (10.9-12.4) SEC INR 0.9 (0.9-1.1) APTT 30.0 (26.0-36.8) SEC D-Dimer High Sensitivty < 150 NG/ML Sodium (135-145) mmol/L Potassium (3.3-5.1) mmol/L Chloride (96-108) mmol/L Carbon Dioxide (22-29) mmol/L Anion Gap (12-20) BUN (9-16) mg/dL Creatinine (0.5-1.4) mg/dL Estim Creat Clear Calc Estimated GFR POC Glucose 251 H (60-115) mg/dL Random Glucose (60-115) mg/dL Estimat Average Glucose TNP Hemoglobin A1c % > 14.0 H (<6.0) % Calcium (8.4-10.2) mg/dL Magnesium (1.6-2.6) mg/dL Total Bilirubin (0.0-1.0) mg/dL AST (5-37) U/L ALT (0-40) U/L Alkaline Phosphatase (39-117) U/L Troponin I High Sens < 2.7 < 2.7 (<3.5-35.0) ng/L Total Protein (6.5-8.0) g/dL Albumin (3.5-5.0) g/dL Urine Color Urine Appearance Urine pH (5.0-9.0) Ur Specific [place] (1.005-1.025) Urine Protein (Neg-Trace) mg/dL Urine Glucose (UA) (Negative) mg/dL Urine Ketones (Negative) mg/dL Urine Blood (Negative) Urine Nitrite (Negative) Ur Leukocyte Esterase (Negative) Urine RBC (0-2) /HPF Urine WBC (0-5) /HPF Ur Squamous Epith Cells (0-2) /HPF Urine Bacteria (None Seen) Hyaline Casts (0-2) /LPF Independent Interpretation I performed an independent interpretation of an: EKG (Sinus rhythm) Independent Historian Clinical information obtained from an independent historian. History obtained from or confirmed by: Other (Patient) Prescription Management I considered prescription management with: Other (Med for) Discharge Plan Discharge Clinical Impression: Diabetes Patient Disposition: Home, Self-Care Instructions: Muscle Strain (ED), Musculoskeletal Pain (ED), Diabetes and Nutrition (ED), Diabetes and Exercise (ED), Type 2 Diabetes Management for Adults (ED) Additional Instructions: You will need follow-up with primary care provider for management of the diabetes. You will need to change your diet and exercise. Recommend weight loss. Return to the ED immediately for any abdominal pain, nausea, vomiting, fever, chills, dysuria, hematuria, weakness, lethargy, increased urinary frequency, increased thirst, rash, or any other concerning symptoms. Prescriptions: New metformin 500 mg tablet 500 mg PO BID 30 Days Qty: 60 0RF No Action lorazepam [Ativan] 1 mg tablet 1 mg PO BEDTIME PRN (Reason: Anxiety, insomnia) Qty: 10 0RF Rx Instructions: Patient may request partial fill omeprazole 20 mg tablet,delayed release (DR/EC) 20 mg PO DAILY Qty: 30 0RF benzonatate 100 mg capsule 100 mg PO BID PRN (Reason: cough) Qty: 20 0RF Referrals: [facility] [Provider Group] (New diabetes. Needs management) [facility] Endocrinology [Provider Group] (New diabetic. Needs management) [facility] Primary Care, Yves [Provider Group] (New diabetes. Need managment) [facility] Primary Care, Brutus [Provider Group] (New diabetes needs management) Stand Alone Forms: Work/School Release Interventions: ED Discharge Assessment Last Done: 11/16/24 14:58 Discharge Date/Time: 11/16/24 14:59 Print Language: Maltese
[2024-11-16 11:00] LABS: Troponin-I High Sensitivity < 2.7 ng/L (<3.5-35.0)
[2024-11-16 11:02] LABS: Hemoglobin A1c % > 14.0 % (<6.0)
--- OUTSIDE RECORDS SUMMARY | 2024-11-16 12:18 | XMS_ITS | Clinical Summary ---
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 20 tablet Active Additional Information Patient not taking.Reported on 08/16/2024 ibuprofen 600 MG tablet Take 1 tablet (600 mg) by mouth every 6 (six) hours if needed for mild pain for up to 20 doses. 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 Encounters Date Type Department Care Team Description 08/16/2024 3:00 PM EST Office Visit [facility] [address] [place] [address] Gena Fuller Advanced periodontitis (Primary Dx); Dental calculus; Erosion of teeth, limited to enamel from Last 3 Months Social History Tobacco Use Types Packs/Day Years Used Date Smoking Tobacco: Never Passive Smoke Exposure: Never Smokeless Tobacco: Never Tobacco Cessation:Counseling Given: No Alcohol Use Standard Drinks/Week Comments Never 0 (1 standard drink = 0.6 oz pur e alcohol) Sex and Gender Information Value Date Recorded Sex Assigned at Male 10/29/2022 3:29 PM EDT Legal Sex Male 3:24 PM EDT Gender Identity Male 10/29/2022 3:29 PM EDT Sexual Orientation Straight 10/29/2022 3: 29 PM EDT Last Filed Vital Signs Vital Sign Reading Time Taken Comments Blood Pressure 140/82 08/16/2024 3:03 PM EST Pulse 72 12/29/2023 1:00 PM EDT Temperature - - Respiratory Rate - - Oxygen Saturation - - Inhaled Oxygen Concentration - - Weight - - Height - - Body Mass Index - - Plan of Treatment Upcoming Encounters Date Type Department Care Team (Late st Contact Info) Description 02/19/2025 3:00 PM EDT Office Visit [facility] [address], [place] [id number] Alina, Gena [address] [place] [address] Health Maintenance Due Date Last Done Comments Depression Screening 1980 HIV Screening 1980 Lipid Panel 1980 SDOH Screening 1980 Disability Screening 1980 Alcohol/Substance Use Screening 1992 Family Planning (PISQ) 1995 Hepatitis C Screening 1998 DTaP/Tdap/Td Vaccines (1 - Tdap) 1999 Hepatitis B Vaccines (1 of 3 - 19+ 3-dose series) 1999 COVID-19 Vaccine ( - 2023- season) 2024 Influenza Vaccine (Season Ended) 2025 Dental Oral Exam 02/17/2025 08/16/2024, 12/14/2023 Dental Prophylaxis 02/17/2025 08/16/2024, 12/29/2023 Tobacco Screening 08/16/2025 08/16/2024 Dental X-Ray: Bitewings 08/17/2025 08/17/19, 03/10/2024, 02/08/2024, Additional history exists Dental X-Ray: Full Mouth 12/14/2026 12/14/2023, 0612/2023 Zoster Vaccines (1 of 2) 2030 RSV Patients and Patients Aged 60 years or older (1 - 1-dose 75+ series) 2055 HIB Vaccines Aged Out No longer eligi ble based on patient's age to complete this topic HPV Vaccines Aged Out No longer eligi ble based on patient's age to complete this topic Hepatitis A Vaccines Aged Out No long er eligible based on patient's age to complete this topic IPV Vaccines Aged Out No longer eligi ble based on patient's age to complete this topic Meningococcal B Vaccine Aged Out No l onger eligible based on patient's age to complete this topic Meningococcal Vaccine Aged Out No urszula bria eligible based on patient's age to complete this topic Pneumococcal Vaccine: Pediatrics (0 to 5 Years) and At-Risk Patients (6 to 49) Years) Aged Out No longer eligible based on patient's age to complete this topic RSV under 20 months Aged Out No longe r eligible based on patient's age to complete this topic Rotavirus Vaccines Aged Out No longer eligible based on patient's age to complete this topic Procedures Procedure Name Priority Date/Time Associated Diagnosis Comments PERIODIC ORAL EVALUATION - ESTABLISHED PATIENT Routine 08/16/2024 3:00 PM EST CASE PRESENTATION, DETAILED AND EXTENSIVE TREATMENT PLANNING Routine 08/16/2024 3:00 PM EST ORAL HYGIENE INSTRUCTIONS Routine 08/16/2024 3:00 PM EST Advanced periodontitis Dental calculus PROPHYLAXIS - ADULT Routine 08/16/2024 3 :00 PM EST Advanced periodontitis Dental calculus INTRAORAL - PERIAPICAL EACH ADDITIONAL RADIOGRAPHIC IMAGE Routine 08/16/2024 3:00 PM EST Advanced periodontitis Dental calculus INTRAORAL - PERIAPICAL FIRST RADIOGRAPHIC IMAGE Routine 08/16/2024 3:00 PM EST Advanced periodontitis Dental calculus BITEWINGS - 4 RADIOGRAPHIC IMAGES Routine 08/16/2024 3:00 PM EST Advanced periodontitis Dental calculus INTRAORAL - COMPLETE SERIES OF RADIOGRAPHIC IMAGES Routine 12/14/2023 8:00 AM EDT from Last 3 Months or Most Recently Relevant to Health Maintenance Insurance [facility] MEDICA[facility] LIMITED ADULT DENTAL - [facility] FULL (MEDICAID)
[2024-11-16 12:27] LABS: Glucose, Whole Blood 251 mg/dL (60-115)
[2024-11-16 12:51] LABS: Troponin-I High Sensitivity < 2.7 ng/L (<3.5-35.0)
[2024-11-16 14:57] VITALS: BP 129/85; PULSE 83; RESP 18; TEMP 36.9; O2SAT 98
[2024-11-16 14:58] VITALS: BP 129/85; PULSE 83; RESP 18; TEMP 36.9; O2SAT 98
== END 2024-11-16 14:59 | disposition home or self-care (01) ==
PROVIDERS: Physician Assistant; Emergency Provider Emergency Medicine
DX: R42 Dizziness and giddiness (principal); E11.9 Type 2 diabetes mellitus without complications; R63.1 Polydipsia; R35.0 Frequency of micturition; R55 Syncope and collapse; R10.2 Pelvic and perineal pain; R11.0 Nausea; Z79.899 Other long term (current) drug therapy
CPT/HCPCS: 36415; 70450; 71046; 80053; 81001; 82947; 83036; 83735; 84484; 85027; 85379; 85610; 85730; 93005; 96360; 99284; 99285

== ENCOUNTER → 2024-11-16 08:28 | Outpatient (BNV) | payer MEDICAID, SELFPAY | PROVIDERS: Emergency Provider Emergency Medicine; Visit Provider Internal Medicine | DX: I49.1 Atrial premature depolarization (principal) | CPT/HCPCS: 93010 ==

== ENCOUNTER → 2024-11-16 08:30 | Outpatient (BNV) | payer MEDICAID, SELFPAY | PROVIDERS: Emergency Provider Emergency Medicine; Visit Provider Radiology Diagnostic Radiology | DX: R42 Dizziness and giddiness (principal); R07.81 Pleurodynia | CPT/HCPCS: 70450; 71046 ==

== ENCOUNTER 2024-11-20 13:38 | Outpatient (AMB) | payer SELFPAY ==
[2024-11-20 13:41] VITALS: BP 146/98; PULSE 75; O2SAT 96; BMI 35.9
--- NOTE | 2024-11-20 13:41 | MHC.OFFVIS ---
Vital Signs 11/20/24 13:41 Height 5 ft 4 in Weight 208 lb 15.971 oz BMI 35.9 BP 146/98 H Blood Pressure Location Lt brachial Position Sitting Pulse 75 Pulse Source Pulse Oximeter Pulse Oximetry (%) 96 Oxygen Delivery Method Room Air Intake Visit Reasons: DM Intake Note: New patient present today for Type 2 Diabetes Mellitus Last Diabetic eye exam: He's never had an eye exam Last Podiatry Visit: Doesn't have one Random Glucose: 139 mg/dl HgA1C: >14.0% 11/16/24 Stemmer Machine Required: Yes Stemmer Machine Language: [employer]: Stemmer Machine Present Stemmer Machine Name: Angie Information Interpreted: non-clinical & clinical Accompanied by: Self / Same As Patient Allergies No Known Allergies Allergy (Verified 11/20/24 13:50) Medication List - Last Reconciled 11/20/24 by Regi Ching MD alcohol swabs (Alcohol Prep Pads) pad topical TID blood pressure test kit-large (Omron Blood Pressure Monitor-3 Series kit) As directed blood sugar diagnostic (FreeStyle Lite Strips) As directed blood-glucose meter (FreeStyle [place] Lite kit) As directed insulin glargine (Lantus U-100 Insulin) 20 units subcut BEDTIME insulin syringe-needle U-100 (TRUEplus Insulin) As directed lancets (TRUEplus Lancets) As directed metformin 500 mg PO BID 30 days HPI Comments Details: 44-year-old male coming in today for initial evaluation of type 2 diabetes mellitus. History of diabetes New diagnosis, diagnosed 11/16/2024 after he presented to the ED with dizziness, increased thirst, urination, and was found to have A1c of greater than 14%, discharged on metformin 500 mg b.i.d. hasnt seen a doctor for many years Was assigned with PCP , doesnt know the name , has visit 12/04/24, has visit in the [employer] system Prior therapy: None Current regimen: Metformin 500 mg b.i.d. Insulin lantus 20 units at 8 pm Random Glucose: 139 mg/dl HgA1C: >14.0% 11/16/24 Was noted to have high BP during ER visit and again today , doesnt have official diagnosis of HTN. Denies any symptoms of hyperglycemia including polyphagia, polyuria, polydipsia. Denies any hypoglycemic symptoms. SMBG's Vaccines: Complications Eye exam: Last eye exam was never Neuropathy: reports numbness and tingling in hands and feet Kidney disease: GFR > November, no microalbumin in chart Macrovascular complications: No history of macrovascular complications. Statin:none JIMENEZ/ARB: none Exercise: Walks weekends Diet control: Mons energy drink every morning with 54 g of sugars in each BF: 9 am rice with beans , eggs ,chicken , fruits in between Supper: 5 pm : anything like above Fruits after like jace, pear , grapes , strawberries , oranges some coconut juice on some days Alcohol :beer , 10 drinks in a week , mostly on Sundays 10 beers Smoking : never No drug use Lives with three kids and He has never had any hospitalizations for hyperglycemia/hypoglycemia. Went to ED with hyperglycemia but not admitted this November 2024, no DKA . Works in [employer] so very active at work Family history Paternal aunts x2 and paternal grandfather had type 2 DM Physical exam General: sitting comfortably in no acute distress HEENT: normocephalic/atraumatic, moist oral mucosa Neck: supple, symmetrical, no thyromegaly , Cardiac: normal heart sounds Pulm: normal breath sounds B/L, no added breath sounds Abd: not distended, no tenderness Extremities: no edema, no signs of myxedema Neuro: AAO x3, Speech: normal, no facial droop, moving all 4 extremities Skin: no rash Foot exam: intact sensation to monofilament, intact pulses, intact vibration Laboratory Tests 11/16/24 11/16/24 11/16/24 08:36 10:22 10:29 Hgb 16.0 Hct 44.1 POC Glucose 286 H Hemoglobin A1c % > 14.0 H AST 36 ALT 63 H Alkaline Phosphatase 77 11/16/24 12:22 Hgb Hct POC Glucose 251 H Hemoglobin A1c % AST ALT Alkaline Phosphatase [facility] Medical History (Updated 11/20/24 @ 14:29 by Regi Ching MD) Diabetes mellitus with insulin therapy Social History Alcohol intake: unknown Assessment & Plan Assessment & Plan (1) Diabetes mellitus with insulin therapy: Code(s): E11.9 - Type 2 diabetes mellitus without complications; Z79.4 - [facility] (current) use of insulin Category: Medical Plan: 44-year-old male coming in today for initial evaluation of type 2 diabetes mellitus currently on insulin, new onset type 2 diabetes mellitus diagnosed in November 2024, after he presented to the ED with catabolic symptoms of weight loss, as well as hyperglycemic symptoms. Prescribed insulin and metformin. His blood sugars remain elevated in the 200s and 300s. He has been using his meter to check his family's blood sugars as well which are the ones that are showing in 100s. At this time we will continue him on his current regimen. He is reporting some improvement in his symptoms. He was prescribed the vials and syringes of insulin in the ED, I will send him Lantus pen prescription. I have asked her nurse to show him how to administer insulin Lantus via pen today. A large part of the visit was spent over going over the diagnosis of diabetes mellitus, what does that mean, complications of diabetes mellitus and hyperglycemia including both microvascular and macrovascular complications as well as hypoglycemia education. Prescribed [employer] Alice 3+ sensor and reader, he has a an android phone, I am not sure if that would be compatible so I am also prescribing a reader, we will place referral for family educator for sensor start. Plan: -Continue to monitor blood sugars once before eating in the morning, once 2 hours post meal , once at bedtime fasting blood sugar target (80 to 120) 2 hours post meal (target less than 140 ) bedtime -Bring blood sugar monitor to ever visit -We have prescribed a sensor to your pharmacy once you pick that up bring it to your visits in this office for us to help apply it -Placed package reinspector referral -Continue insulin lantus 20 units daily -Continue Metformin 500 mg twice daily -Do blood work fasting and urine test -Follow up in 5 weeks -hypoglycemia education done Note: Blood pressure noted to be elevated, we will keep an eye on that, we will likely introduce lisinopril as well in the future visits Plan I spent 75 minutes in reviewing the record, seeing the patient and documenting in the medical record. Orders: Orders Lipid Panel Today E11.9 - Type 2 diabetes mellitus without complications, Z79.4 - [employer] (current) use of insulin Comprehensive Met. Panel Today E11.9 - Type 2 diabetes mellitus without complications, Z79.4 - [facility] (current) use of insulin Microalbumin, Random (w Creat) Today E11.9 - Type 2 diabetes mellitus without complications, Z79.4 - [facility] (current) use of insulin Referrals Diabetes Education Referral E11.9 - Type 2 diabetes mellitus without complications, Z79.4 - [facility] (current) use of insulin Podiatry Referral E11.9 - Type 2 diabetes mellitus without complications, Z79.4 - [facility] (current) use of insulin Patient Financial Counselor Nutrition Referral E11.9 - Type 2 diabetes mellitus without complications, Z79.4 - [facility] (current) use of insulin Ophthalmology Referral E11.9 - Type 2 diabetes mellitus without complications, Z79.4 - [facility] (current) use of insulin Medications: New blood-glucose,delivery helper,cont (FreeStyle Alice 3 [place]) As directed 1 ea 0RF E11.9 - Type 2 diabetes mellitus without complications, Z79.4 - [employer] (current) use of insulin blood-glucose sensor (FreeStyle Alice 3 Plus Sensor device) As directed every 14 days 6 ea 3RF E11.9 - Type 2 diabetes mellitus without complications, Z79.4 - [facility] (current) use of insulin pen needle, diabetic (1st Tier Unifine Pentips) As directed to inject insulin daily 100 ea 3RF insulin glargine (Lantus Solostar U-100 Insulin) 20 units (0.2 mL) subcut DAILY 15 mL 3RF Refilled metformin 500 mg PO BID 30 days 60 tabs 5RF Patient Instructions: Continue to monitor blood sugars once before eating in the morning, once 2 hours post meal , once at bedtime fasting blood sugar target (80 to 120) 2 hours post meal (target less than 140 ) bedtime Bring blood sugar monitor to ever visit We have prescribed a sensor to your pharmacy once you pick that up bring it to your visits in this office for us to help apply it The family educator Nicole can help set that up for you See package reinspector also See foot doctor, referral sent to [facility] , their office should call you See eye docrot , referral sent to [facility], their office should call you Continue insulin lantus 20 units daily Continue Metformin 500 mg twice daily Do blood work fasting and urine test Follow up in 5 weeks Rule of 15 Treatment for Hypoglycemia (Low blood sugar) If your blood glucose is low (70 and below)*, follow the steps below to treat: Eat or drink something from the list below equal to 15 grams of carbohydrate (carb). Rest for 15 minutes Re-check your blood glucose. If it is still low, (below 70), repeat step 1 above. ? If your next meal is more than an hour away, you will need to eat one carbohydrate choice as a snack to keep your blood glucose from going low again. ?If you can't figure out why you have low blood glucose, call your healthcare provider, as your medicine may need to be adjusted. ?Always carry something with you to treat an insulin reaction. Use food from the list below. ? Foods equal to One Carbohydrate Choice (15 grams of carbohydrate): 3 Glucose ?tablets or 4 Dextrose tablets 4 ounces of fruit juice 5-6 ounces (about 1/2 can) of regular soda such as Coke or Pepsi ? 7-8 gummy or regular Life Savers ? 1 Tbsp. of sugar or jelly NOTE: If your blood sugar is less than 50, double the portion above for a total of 30 gm. ?Carbohydrate. ? Follow meal plan of 45-60 g of consistent carbohydrates at 3 meals each day and 15 g of carbohydrate at 1-2 snacks each day. Contin?e controlando dickerson nivel de az?car en [place] gonzalo vez antes de comer por la ma?carlita, gonzalo vez 2 horas despu?s de comer y gonzalo vez antes de acostarse. Objetivo de az?car en [place] en ayunas (80 a 120) 2 horas despu?s de comer (objetivo brad a 140) A la hora de acostarse Traiga dickerson gluc?metro a cada visita. Le hemos recetado un sensor en dickerson farmacia. Gonzalo vez que lo recoja, tr?igalo a shakeel visitas en esta cl?fabrice para que le ayudemos a colocarlo. La educadora en diabetes, Nicole, puede ayudarle a configurarlo. Consulte tambi?n con un nutricionista. Consulte con un pod?logo; se le remitir? a [facility]; dickerson cl?fabrice le llamar?. Consulte con un oftalm?logo; se le remitir? a [facility]; dickerson cl?fabrice le llamar?. Contin?e con insulina Lantus 20 unidades diarias. Contin?e con metformina 500 mg dos veces al d?a. Realice an?lisis de [place]lexand[place] en ayunas y an?lisis de orina. Visite el seguimiento en 5 semanas. Tratamiento de la Kadi del 15 para la Hipoglucemia (nivel bajo de az?car en [place]) Si dickerson nivel de glucosa en [place] es bajo (70 o menos)*, siga los pasos a continuaci?n para tratarlo: Coma o micki algo de la lista a continuaci?n equivalente a 15 gramos de carbohidratos. Descanse 15 minutos. Vuelva a medir dickerson nivel de glucosa en [place]. Si sigue bajo (menos de 70), repita el paso 1 anterior. Si dickerson pr?xima comida es en m?s de gonzalo hora, deber? consumir un carbohidrato marah refrigerio para evitar que dickerson nivel de glucosa en [place] baje de nuevo. Si no puede determinar la causa de dickerson nivel bajo de glucosa en [place], llame a dickerson profesional de la loni, ya que podr?a ser necesario ajustar dickerson medicamento. Lleve siempre consigo algo para tratar gonzalo reacci?n a la insulina. Use alimentos de la lista a continuaci?n. Alimentos equivalentes a gonzalo opci?n de carbohidratos (15 gramos): 3 tabletas de glucosa o 4 tabletas de dextrosa 113 g de jugo de fruta 140 g (aproximadamente 1/2 ernie) de refresco regular marah Coca-Cola o Pepsi 7-8 gomitas o Life Savers regulares 1 cucharada de az?car o jalea NOTA: Si dickerson nivel de az?car en [place] es inferior a 50, duplique la porci?n anterior para un total de 30 g de carbohidratos. Siga un plan de alimentaci?n de 45 a 60 g de carbohidratos consistentes en 3 comidas al d?a y 15 g de carbohidratos en 1 o 2 refrigerios al d?a. Coding Level of Care Code New Pt Level 5 (95566) Complex EM visit Add On G2211 Diagnoses Diabetes mellitus with insulin therapy E11.9; Z79.4 Time Spent (min) 75
[2024-11-20 13:57] LABS: Glucose, Whole Blood 139 mg/dL (60-115)
== END 2024-11-20 15:13 | disposition home or self-care (01) ==
LOC: HO.ENCR 13:39
PROVIDERS: Visit Provider Student in an Organized Health Care Education/Training Program
DX: E11.9 Type 2 diabetes mellitus without complications (principal); Z79.4 Long term (current) use of insulin
CPT/HCPCS: 99205; G2211

== ENCOUNTER → 2024-11-20 13:38 | Outpatient (BNVA) | payer MEDICAID, OTHER, SELFPAY | PROVIDERS: Visit Provider Student in an Organized Health Care Education/Training Program | DX: E11.9 Type 2 diabetes mellitus without complications (principal); Z79.4 Long term (current) use of insulin | CPT/HCPCS: 82947; 99202 ==

== ENCOUNTER 2024-12-01 10:42 | Outpatient (REF) | payer MEDICAID, OTHER, SELFPAY ==
--- OUTSIDE RECORDS SUMMARY | 2024-12-01 11:11 | XMS_ITS | Clinical Summary ---
Author Organization [employer] Address [address] [facility] [address] [place] [address] Care Team Providers Care Intake Counselor Name Role Phone Unavailable Primary Care Provider Unavailabl e Allergies No known active allergies Medications acetaminophen (Tylenol) 500 MG tablet Take 1 tablet (500 mg) by mouth every 6 (six) hours if needed for mild pain for up to 20 doses. 20 tablet 4 Active ibuprofen 600 MG tablet Take 1 tablet (600 mg) by mouth every 6 (six) hours if needed for mild pain for up to 20 doses. 20 tablet 4 Active FREESTYLE LITE test stripIndications: Type 2 diabetes mellitus without complication, without long-term current use of insulin ([facility]) Use to test blood sugar 3 times daily 100 each 12 5 11/18/19 26 Active Lancets miscIndications:T ype 2 diabetes mellitus without complication, without long-term current use of insulin ([facility]) Use to test blood sugar 3 times daily 100 each 5 Active Alcohol Swabs 70 % padsIndications:T ype 2 diabetes mellitus without complication, without long-term current use of insulin ([facility]) Use to test blood sugar 3 times daily 100 each 5 Active Blood Glucose Monitoring Suppl (FreeStyle Summit Lite) w/Device kitIndications:Ty pe 2 diabetes mellitus without complication, without long-term current use of insulin (CMS/[facility]) Use to test blood sugar 3 times daily 1 kit 1 5 Active insulin glargine (Lantus) 100 UNIT/ML injectionIndicati ons:Type 2 diabetes mellitus without complication, without long-term current use of insulin (CMS/HCC) Inject 20 Units under the skin at bedtime. 10 mL 1 5 02/26/20 25 Active insulin syringe-needle U-100 31G X 5/16 0.5 mL miscIndications:T ype 2 diabetes mellitus without complication, without long-term current use of insulin (CMS/HCC) Use to inject insulin nightly. 100 each 12 Active Blood Pressure kitIndications:El evated blood pressure reading in office without diagnosis of hypertension 1 Units 2 times daily. 1 kit Active Active Problems Problem Noted Date Diagnosed Date History of tooth extraction 11/23/2024 Bone spicules of jaw 11/23/2024 Type 2 diabetes mellitus wit hout complication, without long-term current use of insulin 11/17/2024 Assessment & Plan (11/17/2024 5:45 PM EDT): -Newly diagnosed with A1c of 14.4% in clinic today -Discussed initiation of insulin glargine 20 units nightly in addition to metformin -Rx'd glucometer and advised 3 times daily testing -Diabetes teaching provided by walk-in RN -Discussed dietary changes and exercise requirements -Reviewed signs and symptoms of hypo and hyperglycemia -He scheduled a follow-up with me and encouraged to complete labs prior to the appointment Erosion of teeth, limited to enamel 04/10/2024 Dental calculus 12/29/2023 Advanced periodontitis 12/29/2023 Missing teeth, acquired 12/29/2023 Gingival bleeding 12/29/2023 Localized gingival recession 12/29/2023 Acute gingival inflammation 12/29/2023 Dental plaque 12/14/2023 Dental caries 11/19/2023 Symptomatic irreversible pulpitis 11/19/2023 Encounters Date Type Department Care Team Description 11/23/2024 2:30 PM EDT Office Visit [facility] [address] [place] [address] Navi Mckinnon DDS History of tooth extraction, unspecified edentulism class (Primary Dx); Bone spicules of jaw 11/17/2024 1:20 PM EDT Office Visit [facility] [address] [place] [address] Janell Toney NP Type 2 diabetes mellitus without complication, without long-term current use of insulin (CMS/HCC) (Primary Dx); Elevated blood pressure reading in office without diagnosis of hypertension; Encounter for health-related screening 11/17/2024 Travel from Last 3 Months Social History Tobacco [...] Sign Reading Time Taken Comments Blood Pressure 128/74 11/23/2024 2:52 PM EDT Pulse 70 11/23/2024 2:52 PM EDT Temperature 36.7 C (98 F) 11/17/2024 1:10 PM EDT Respiratory Rate 18 11/17/2024 1:10 PM EDT Oxygen Saturation 97% 11/17/2024 1:10 PM EDT Inhaled Oxygen Concentration - - Weight 92.9 kg (204 lb 12.8 oz) 11/17/2024 1:10 PM EDT Height 165.1 cm (5' 5 ) 11/17/2024 1:10 PM EDT Body Mass Index 34.08 11/17/2024 1:10 PM EDT Plan of Treatment Upcoming Encounters Date Type Department Care Team (Late st Contact Info) Description 12/04/2024 2:00 PM EDT Office Visit [facility] [address] [place] [address] Janell Toney NP [address] [place] [address] 02/19/2025 3:00 PM EDT Office Visit [facility] [address] [place] [address] Gena Fuller [address] [place] [address] Health Maintenance Due Date Last Done Comments Depression Screening 1980 HIV Screening 1980 Lipid Panel 1980 SDOH Screening 1980 Disability Screening 1980 Diabetes: Foot Exam 1990 Eye Exam 1990 Alcohol/Substance Use Screening 1992 Family Planning (PISQ) 1995 Hepatitis C Screening 1998 DTaP/Tdap/Td Vaccines (1 - Tdap) 1999 Diabetes: Urine Protein Screening 1999 Hepatitis B Vaccines (1 of 3 - 19+ 3-dose series) 1999 Pneumococcal Vaccine: Pediatrics (0 to 5 Years) and At-Risk Patients (6 to 49) Years (1 of 2 - PCV) 1999 COVID-19 Vaccine ( - 2023- season) 2024 Influenza Vaccine (Season Ended) 2025 Dental Oral Exam 02/17/2025 08/16/2024, 12/14/2023 Dental Prophylaxis 02/17/2025 08/16/2024, 12/29/2023 Diabetes: Hemoglobin A1C 02/17/2025 11/17/2024 Dental X-Ray: Bitewings 08/17/2025 08/17/19, 03/10/2024, 02/08/2024, Additional history exists Tobacco Screening 11/23/2025 11/23/2024 Dental X-Ray: Full Mouth 12/14/2026 12/14/2023, 12/2023 Zoster Vaccines (1 of 2) 2030 RSV [...] Procedure Name Priority Date/Time Associated Diagnosis Comments CASE PRESENTATION, DETAILED AND EXTENSIVE TREATMENT PLANNING Routine 11/23/2024 2:30 PM EDT INTRAORAL - PERIAPICAL FIRST RADIOGRAPHIC IMAGE Routine 11/23/2024 2:30 PM EDT LIMITED ORAL EVALUATION - PROBLEM FOCUSED Routine 11/23/2024 2:30 PM EDT POCT GLYCATED HEMOGLOBIN, TOTAL Routine 11/17/2024 2:44 PM EDT Type 2 diabetes mellitus without complication, without long-term current use of insulin ([facility]) POCT GLUCOSE Routine 11/17/2024 2:44 PM EDT Type 2 diabetes mellitus without complication, without long-term current use of insulin ([facility]) PROPHYLAXIS - ADULT Routine 08/16/2024 3 :00 PM EST Advanced periodontitis Dental calculus BITEWINGS - 4 RADIOGRAPHIC IMAGES Routine 08/16/2024 3:00 PM EST Advanced periodontitis Dental calculus PERIODIC ORAL EVALUATION - ESTABLISHED PATIENT Routine 08/16/2024 3:00 PM EST INTRAORAL - COMPLETE SERIES OF RADIOGRAPHIC IMAGES Routine 12/14/2023 8:00 AM EDT from Last 3 Months or Most Recently Relevant to Health Maintenance Results * (ABNORMAL) POCT A1C (11/17/2024 2:44 PM EDT) Hemoglobin A1C 14.4(A) 4.0 - 6.0 % Blood 11/17/2024 2:44 PM EDT us Janell Toney NP POINT OF CARE TEST ENTER/EDIT O RDERABLES Final Result * (ABNORMAL) POCT glucose manually resulted (11/17/2024 2:44 PM EDT) Glucose Blood, POC 237(A) 60 - 200 mg/dL Blood Capillary blood specimen / Unknown 11/17/2024 2:44 PM EDT us Janell Toney HEALTH AND WELLNESS DIRECTOR POINT OF CARE TEST ENTER/EDIT O RDERABLES Final Result from Last 3 Months Insurance [facility] FULL DENTAL-[facility] MEDICAID LIMITED ADULT DENTAL - HSN FULL (MEDICAID)
[2024-12-01 12:30] LABS: Alanine Aminotransferase 35 U/L (0-40); Albumin Level 4.4 g/dL (3.5-5.0); Alkaline Phosphatase 60 U/L (39-117); Anion Gap 9 (12-20); Aspartate Amino Transferase 35 U/L (5-37); Bilirubin Total 0.8 mg/dL (0.0-1.0); Blood Urea Nitrogen 11 mg/dL (9-16); Calcium 9.3 mg/dL (8.4-10.2); Carbon Dioxide 28 mmol/L (22-29); Chloride 106 mmol/L (96-108); Cholesterol 228 mg/dL (<200); Estimated Glomerular Filt Rate > 60; Glucose Random 111 mg/dL (60-115); HDL Cholesterol 62 mg/dL (>40); LDL Cholesterol Calculated 136 mg/dL (<100); Potassium 3.7 mmol/L (3.3-5.1); Sodium 139 mmol/L (135-145); Total Protein 7.3 g/dL (6.5-8.0); Triglycerides 150 mg/dL (<150)
[2024-12-01 12:36] LABS: Creatinine Urine 112.69 mg/dL; Microalbumin Urine < 5.0 mg/L
[2024-12-02 08:34] LABS: HBS Num1 0.48 mIU/mL (0-7.99); HBc Num1 0.11 S/CO (0.00-0.79); HIV AB/AG Nonreactive (Nonreactive); HIV Num 1 0.06 S/CO (0.00-0.99); Hepatitis B Core Antibody Nonreactive (Nonreactive); Hepatitis B Surface Antigen Negative (Negative); ~HepC Num1 0.12 S/CO (0.00-0.79); ~Hepatitis B Surface Antibody NONREACTIVE (Nonreactive); ~Hepatitis C Antibody Nonreactive (Nonreactive)
== END 2024-12-01 10:43 | disposition home or self-care (01) ==
LOC: HO.HHCL 10:42
PROVIDERS: PCP Nurse Practitioner; Referring Provider Student in an Organized Health Care Education/Training Program; Visit Provider Nurse Practitioner
DX: E11.9 Type 2 diabetes mellitus without complications (principal); Z79.4 Long term (current) use of insulin; Z13.9 Encounter for screening, unspecified
CPT/HCPCS: 36415; 80053; 80061; 82043; 82570; 86704; 86706; 86803; 87340; 87389

== ENCOUNTER 2025-03-02 13:25 | Outpatient (REF) | payer MEDICAID, OTHER, SELFPAY ==
--- OUTSIDE RECORDS SUMMARY | 2025-03-02 13:29 | XMS_ITS | Encounter Summary ---
Author Organization [employer] Address [address] [facility] [address] [place] [address] Care Team Providers Care Building Official Name Role Phone Janell Toney NP Primary Care Provider [phone] Anne Quiñones PharmD Unavailable [phone] Encounter Details Date Type Department Care Team (Latest Contact Info) Description 02/15/2025 Results Follow-Up [facility] [address] [place] [address] Janell Toney NP [address] [place] [address] Comprehensive Metabolic Panel, Lipid Panel, Standard, Albumin, Random Urine W/Creatinine Social History Tobacco Use Types Packs/Day Years Used Date Smoking Tobacco: Never Passive Smoke Exposure: Never Smokeless Tobacco: Never Alcohol Use Standard Drinks/Week Comments Yes 10 (1 standard drink = 0.6 oz pu re alcohol) Sundays only Alcohol Answer Date Recorded Q1: How often do you have a drink containing alc ohol? 3 12/22/2024 Q2: How many drinks containi ng alcohol do you have on a typical day when you are drinking? 5 12/22/2024 Q3: How often do you have six or more drinks on one occasion? 4 12/22/2024 Depression Answer Date Recorded Patient Health Questionnaire-9 Score 3 12/04/2024 Patient Health Questionnaire-9 Score 3 12/04/2024 Last PHQ-9: Questionnaire Data Not on file 0 12/04/2024 Housing Stability Answer Date Recorded What is your housing situation today? I have epifanio paez 12/04/[address] you li ve. Do you have problems with any of the following? None of the above 12/04/2024 Food Insecurity Answer Date Recorded Within the past 12 months, y ou worried that your food would run out before you got money to buy more: Sometimes True 2024 Within the past 12 months,th e food you bought just didn't last and you didn't have enough money to get more: Sometimes True 12/04/2024 Transportation Answer Date Recorded In the past 12 months, has l ack of transportation kept you from medical appts, meetings, work or from getting things needed for daily living? No 12/04/2024 Utilities Answer Date Recorded In the past 12 months, has t he electric, gas, oil or water company threatened to shut off services in your home? No 12/04/2024 Depression Answer Date Recorded Patient Health Questionnaire-2 Score 3 12/04/2024 Internet Access Answer Date Recorded Internet Access Q1 Yes 12/04/2024 Internet Access Q2 Not on file 12/04/2024 Sex and Gender Information Value Date Recorded Sex Assigned at Male 10/29/2022 3:29 PM EDT Legal Sex Male 3:24 PM EDT Gender Identity Male 10/29/2022 3:29 PM EDT Sexual Orientation Straight 10/29/2022 3: 29 PM EDT documented as of this encounter Plan of Treatment Upcoming Encounters Date Type Department Care Team (Late st Contact Info) Description 03/06/2025 3:30 PM EDT Medication Management [facility] [address] [place] [phone] Anne Quiñones, PharmD [address] [place] [address] 04/16/2025 2:30 PM EST Office Visit [facility] [address] [place] [phone] Janell Toney NP [address] [place] [address] 08/22/2025 2:15 PM EDT Office Visit [facility] [address] [place] [address] Gena Fuller [address] [place] [address] documented as of this encounter Visit Diagnoses Not on filedocumented in this encounter Additional Health Concerns Assessment Noted Time PHQ-9 Depression Total Score: 3 12/05/19 3:16 PM EDT documented as of this encounter Care Teams Building Official Relationship Specialty Start Date End Date Janell Tonye NP [address] [place] [address] PCP - General Family Medicine 12/04/24 Anne Quiñones PharmD [address] [place] [address] Pharmacist Pharmacy 12/22/24 documented as of this encounter
--- OUTSIDE RECORDS SUMMARY | 2025-03-02 13:29 | XMS_ITS | Clinical Summary ---
Author Organization [address] [facility] Address [address] [place] [address] Phone Care Team Providers Care Welder Name Role Phone Physician, Pcp Unknown Primary Care Provider Dorita vailable Allergies No known active allergies Medications blood pressure monitor (Blood Pressure Kit) kit 1 Units by Not Applicable route 2 times daily. 5 Active glucose blood test strip Use to test blood sugar up to 2 times daily, as directed 5 Active LANCETS MISC Use to test blood sugar 2 times daily 5 Active blood-glucose,r eceiver,cont misc 1 each by Not Applicable route daily. 5 Active Trulicity 0.75 mg/0.5 mL pen injector injection Inject 0.5 mL (0.75 mg total) under the skin. 5 Active Lantus Solostar U-100 Insulin 100 unit/mL (3 mL) injection pen Inject 16 Units under the skin. 5 Active metFORMIN (GLUCOPHAGE) 500 mg tablet Take 1 tablet (500 mg total) by mouth 2 times daily. 5 Active Insupen Pen Needle 32 gauge x 5/32 needle Use to inject insulin 1 times daily 5 Active TRUEplus Insulin 0.5 mL 31 gauge x 5/16 syringe USE TO INJECT INSULIN EVERY NIGHT 5 Active miconazole (Lotrimin AF) 2 % powder Apply topically 2 (two) times a day for 28 days. 70 g 3 5 03/21/20 25 Active Encounters Date Type Department Care Team Description 02/21/2025 2:45 PM EDT Consult Orthopedic Surgery [facility] [address] [facility] [address] [place] [phone] Felipe Wyman, DPM Tinea pedis of both feet (Primary Dx); Type 2 diabetes mellitus without complications (CMS/HCC V24, CMS/HCC V28); Dermatophytosis of nail; Pain in toe of right foot; Pain in toe of left foot from Last 3 Months Social History Tobacco Use Types Packs/Day Years Used Date Smoking Tobacco: Never Assessed Sex and Gender Information Value Date Recorded Sex Assigned at Not on file Legal Sex Male 9:21 AM EDT Gender Identity Not on file Sexual Orientation Not on file Plan of Treatment Health Maintenance Due Date Last Done Comments Diabetes: Annual Foot Exam 1990 Diabetes: Annual Retina Eye Exam 1990 Depression Screening 06/14/2024 Social Influencers of Health Screening 11/22/2024 COVID-19 Vaccine (2023-2 5 season) 2025 Influenza Vaccine (#1) 2025 Diabetes: Annual Urine Albumin-Creatinine Ratio (uACR) 02/21/2025 Diabetes: Blood Sugar Contro l Test (HGBA1C) 05/19/2025 11/17/2024 Hepatitis B Vaccines (3 of 3 - 19+ 3-dose series) 06/05/2025 01/03/2025, 12/04/2024 Diabetes: Annual GFR (Glomerular Filtration Rate) 12/01/2025 12/01/2024 Cholesterol Screening (Lipid Panel) 12/01/2029 12/01/2024 DTaP,Tdap,and Td Vaccines (2 - Td or Tdap) 01/26/2035 01/26/2025 RSV Immunization Adult Patients (1 - 1-dose 75+ series) 2055 HIV Screening Completed 12/01/2024 Hepatitis C Screening Completed 12/01/2024 Pneumococcal Vaccine: Pediatrics (0 to 5 Years) and At-Risk Patients (6 to 49 Years) Completed 01/26/2025 HIB Vaccines Aged Out No longer eligi [...] on patient's age to complete this topic MMR Vaccines Aged Out No longer eligi ble based on patient's age to complete this topic Meningococcal ACWY Vaccine Aged Out N o longer eligible based on patient's age to complete this topic Meningococcal B Vaccine Aged Out No l onger eligible based on patient's age to complete this topic RSV Immunization Patients Under 20 months Aged Out No longer eligible b ased on patient's age to complete this topic Varicella Vaccines Aged Out No longer eligible based on patient's age to complete this topic Insurance MEDICAID - [place] Care Teams Welder Relationship Specialty Start Date End Date Physician, Pcp Unknown PCP - General 11/22/24
--- OUTSIDE RECORDS SUMMARY | 2025-03-02 13:29 | XMS_ITS | Clinical Summary ---
Author Organization [employer] Address [address] [facility] [address] [place] [address] Care Team Providers Care Cryogenics Engineer Name Role Phone Janell Toney NP Primary Care Provider [phone] Anne Quiñones PharmD Unavailable [phone] Allergies No known active allergies Medications Blood Pressure kitIndications:Kaylee vated blood pressure reading in office without diagnosis of hypertension 1 Units 2 times daily. 1 kit 11/18/19 25 Active Continuous Glucose Assembler Filters (FreeStyle Alice 3 [place]) deviceIndications: Type 2 diabetes mellitus without complication, without long-term current use of insulin (CMS/HCC) 1 each Once per day. Use as directed for CGM 1 each 12/05/19 25 Active Continuous Glucose Sensor (FreeStyle Alice 3 Plus Sensor) miscIndications:Ty pe 2 diabetes mellitus without complication, without long-term current use of insulin (CMS/HCC) Apply 1 every 15 days as directed for CGM 2 each 12/05/19 25 Active Alcohol Swabs 70 % padsIndications:Ty pe 2 diabetes mellitus without complication, without long-term current use of insulin (CMS/HCC) Use to test blood sugar 3 times daily 100 each 12/23/19 25 Active Lancets miscIndications:Ty pe 2 diabetes mellitus without complication, without long-term current use of insulin (CMS/HCC) Use to test blood sugar 2 times daily 100 each 12/23/19 25 Active glucose blood (FreeStyle Precision Armen Test) test stripIndications:T ype 2 diabetes mellitus without complication, without long-term current use of insulin (CMS/HCC) Use to test blood sugar up to 2 times daily, as directed 100 each 12/23/19 25 Active metFORMIN (Glucophage) 500 MG tabletIndications: Type 2 diabetes mellitus without complication, without long-term current use of insulin (CMS/HCC) Take 1 tablet (500 mg) by mouth 2 times daily. 180 tablet 1 12/23/19 Active Additional Information Patient not taking.Reason: Pt stopped taking due to his glucose started to go too low. pt has not contacted his physician, Reported on 02/19/2025 insulin pen needle 32G x 4 mm miscIndications:Ty pe 2 diabetes mellitus without complication, without long-term current use of insulin ([facility]) Use to inject insulin 1 times daily 100 each 12/23/19 Active Dulaglutide (Trulicity) 0.75 MG/0.5ML solution auto-injectorIndic ations:Type 2 diabetes mellitus without complication, without long-term current use of insulin ([facility]) Inject 0.75 mg under the skin 1 (one) time per week. 2 mL 12/23/19 Active Additional Information Patient not taking.Reason: Pt stopped taking due to his glucose started to go too low. pt has not contacted his physician, Reported on 02/19/2025 insulin glargine (Lantus SoloStar) 100 UNIT/ML penIndications:Typ e 2 diabetes mellitus without complication, without long-term current use of insulin ([facility]) Inject 16 Units under the skin at bedtime. 15 mL 01/27/20 Active Additional Information Patient not taking.Reason: Pt stopped taking due to his glucose started to go too low. pt has not contacted his physician, Reported on 02/19/2025 atorvastatin (Lipitor) 10 MG tabletIndications: Mixed hyperlipidemia Take 1 tablet (10 mg) by mouth in the evening. 90 tablet 1 01/27/20 Active Active Problems Problem Noted Date Diagnosed Date Obesity (BMI 30-39.9) 02/15/2025 Assessment & Plan (02/15/2025 10:01 AM EDT): Dietary Recommendations: Fruits, vegetables, whole grains, protein foods, and fat-free or low-fat dairy products are healthy choices. Eat different types of protein foods in your diet. This can include seafood, lean meats, poultry, beans, peas, lentils, nuts, seeds, soy products, and eggs. Limit foods and beverages higher in added sugars, saturated fat, and sodium. Exercise Recommendations: At least 150 minutes of moderate-intensity physical activity per week, or an equivalent combination of moderate- and vigorous-intensity activity Mixed hyperlipidemia 02/15/2025 Assessment & Plan (02/15/2025 10:04 AM EDT): -elevated lipids on recent labs -discussed associated cardiovascular risk in the setting of diabetes -patient is agreeable to start lipitor. Medication mechanism and side effects reviewed -dietary changes and physical activity requirements reviewed History of tooth extraction 11/23/2024 Bone spicules of jaw 11/23/2024 Type 2 diabetes mellitus wit hout complication, without long-term current use of insulin 11/17/2024 Assessment & Plan (02/15/2025 9:58 AM EDT): -POCT glucose 143 mg/dL today -continue lantus @ 16 U nightly -discussed importance of routine physical activity and maintaining low carb/low fat diet -monitoring labs ordered today Assessment & Plan (11/17/2024 5:45 PM EDT): [...] Encounters Date Type Department Care Team Description 02/19/2025 3:00 PM EDT Office Visit [facility] ADULT DENTAL [address] [place] [phone] Gena Fuller Advanced periodontitis (Primary Dx); Localized gingival recession; Dental plaque 02/15/2025 Results Follow-Up [facility] MEDICINE [address] [place] [address] [place] [address] Janell Toney NP Comprehensive Metabolic Panel, Lipid Panel, Standard, Albumin, Random Urine W/Creatinine 02/13/2025 Telephone [facility] [place] [address] Janell Toney NP March01/26/2025 Travel 01/05/2025 10:30 AM EDT Clinical Support [facility] [place] [address] Winifred Pack RN Type 2 diabetes mellitus without complication, without long-term current use of insulin (CMS/HCC) [E11.9] 01/05/2025 Travel 01/03/2025 3:30 PM EDT Clinical Support [facility] [place] [address] Winifred Pack RN Encounter for immunization 01/03/2025 Travel 12/25/2024 11:15 AM EDT Office Visit [facility] OPTOMETRY [address] [place] [phone] Camryn Jordan, MIGUEL Type 2 diabetes mellitus without ophthalmic manifestations (CMS/HCC) (Primary Dx); Presbyopia 12/25/2024 Travel 12/22/2024 Telephone [facility] [place] [address] Anne Quiñones PharmD Prior Authorization ([facility]) 12/22/2024 Travel 12/12/2024 Telephone [facility] [place] [address] Janell Toney NP 12/04/2024 2:00 PM EDT Office Visit [facility] [place] [address] Janell Toney NP Type 2 diabetes mellitus without complication, without long-term current use of insulin (CMS/HCC) (Primary Dx); Encounter to establish care; Mixed hyperlipidemia; Obesity (BMI 30-39.9); Dietary counseling; Exercise counseling; Encounter for immunization; Bilateral lower extremity edema 12/04/2024 Telephone [facility] [address] [place] [address] [place] [address] Anne Quiñones PharmD 12/04/2024 Travel 12/01/2024 Orders Only GENERIC EXTERNAL DATA DEPARTMENT Provider, Generic External Data from Last 3 Months Immunizations Immunization Administration Dates Next Due Hep B, adult 01/03/2025,12/04/2024 Pneumococcal Conjugate PCV 20 01/26/2025 Tdap 01/26/2025 Family History Medical History Relation Name Comments Diabetes Sister Relation Name Status Comments Sister Social History Tobacco Use Types Packs/Day Years Used Date Smoking Tobacco: Never Passive Smoke Exposure: Never Smokeless Tobacco: Never Tobacco Cessation:Counseling Given: No Alcohol Use Standard Drinks/Week Comments Yes 10 [...] Sign Reading Time Taken Comments Blood Pressure 126/78 02/19/2025 2:56 PM EDT Pulse 92 12/04/2024 2:17 PM EDT Temperature 37.3 C (99.1 F) 12/04/2024 2:17 PM EDT Respiratory Rate 24 12/04/2024 2:17 PM EDT Oxygen Saturation 96% 12/04/2024 2:17 PM EDT Inhaled Oxygen Concentration - - Weight 95.6 kg (210 lb 12.8 oz) 12/04/2024 2:17 PM EDT Height 165.1 cm (5' 5 ) 12/04/2024 2:17 PM EDT Body Mass Index 35.08 12/04/2024 2:17 PM EDT Plan of Treatment Upcoming Encounters Date Type Department Care Team (Late st Contact Info) Description 03/06/2025 3:30 PM EDT Medication Management [facility] [address] [place] [phone] Anne Quiñones, PharmD [address] [place] [address] 04/16/2025 2:30 PM EST Office Visit [facility] [address] [place] [phone] Janell Toney NP [address] [place] [address] 08/22/2025 2:15 PM EDT Office Visit [facility] ADULT DENTAL [address] [place] [address] Gena Fuller [address] [place] [address] Health Maintenance Due Date Last Done Comments Diabetes: Foot Exam 1990 Family Planning (PISQ) 1995 HPV Vaccines (1 - Male 3-dose series) 1995 COVID-19 Vaccine ( - 2023- season) 2025 Influenza Vaccine (#1) 2025 Dental Oral Exam 02/17/2025 08/16/2024, 12/14/2023 Diabetes: Hemoglobin A1C 02/17/2025 11/17/2024 Hepatitis B Vaccines (3 of 3 - 19+ 3-dose series) 06/05/2025 01/03/2025, 12/04/2024 Dental X-Ray: Bitewings 08/17/2025 08/17/19, 03/10/2024, 02/08/2024, Additional history exists Dental Prophylaxis 08/20/2025 02/19/2025, 0 08/16/2024, 12/29/2023 Diabetes: Urine Protein Screening 12/01/2025 12/01/2024 Lipid Panel 12/01/2025 12/01/2024 Alcohol/Substance Use Screening 12/04/2025 12/04/2024 Depression Screening 12/04/2025 12/04/2024, 12/05/19 Disability Screening 12/04/2025 12/04/2024 SDOH Screening 12/04/2025 12/04/2024 Tobacco Screening 02/19/2026 02/19/2025 Dental X-Ray: Full Mouth 12/14/2026 12/14/2023, 0612/2023 Eye Exam 12/25/2026 12/25/2024, 0709/2024, 12/25/2024, Additional history exists Zoster Vaccines (1 of 2) 2030 DTaP/Tdap/Td Vaccines (2 - Td or Tdap) 01/26/2035 01/26/2025 RSV Patients and Patients Aged 60 years or older (1 - 1-dose 75+ series) 2055 HIV Screening Completed 12/01/2024 Hepatitis C Screening Completed 12/01/2024 Pneumococcal Vaccine: Pediatrics (0 to 5 Years) and At-Risk Patients (6 to 49) Years Completed 01/26/2025 HIB Vaccines Aged Out No [...] Procedure Name Priority Date/Time Associated Diagnosis Comments ORAL HYGIENE INSTRUCTIONS Routine 02/19/2025 3:00 PM EDT Advanced periodontitis Localized gingival recession Dental plaque CASE PRESENTATION, DETAILED AND EXTENSIVE TREATMENT PLANNING Routine 02/19/2025 3:00 PM EDT Advanced periodontitis Localized gingival recession Dental plaque PROPHYLAXIS - ADULT Routine 02/19/2025 3 :00 PM EDT Advanced periodontitis Localized gingival recession Dental plaque POCT GLUCOSE Routine 12/04/2024 2:19 PM EDT Type 2 diabetes mellitus without complication, without long-term current use of insulin ([facility]) ALBUMIN, RANDOM URINE W/CREATININE Routine 12/01/2024 10:49 AM EDT LIPID PANEL, STANDARD Routine 12/01/2024 10:49 AM EDT COMPREHENSIVE METABOLIC PANEL Routine 12/01/2024 10:49 AM EDT HEPATITIS C AB W/REFL TO HCV RNA, QN, PCR Routine 12/01/2024 10:49 AM EDT Encounter for health-related screening HEPATITIS B CORE AB TOTAL Routine 12/01/2024 10:49 AM EDT Encounter for health-related screening HEPATITIS B SURFACE ANTIBODY, QUALITATIVE Routine 12/01/2024 10:49 AM EDT Encounter for health-related screening HEPATITIS B SURFACE ANTIGEN, EIA Routine 12/01/2024 10:49 AM EDT Encounter for health-related screening HIV 1/2 ANTIGEN/ANTIBODY, FOURTH GENERATION W/RFL Routine 12/01/2024 10:49 AM EDT Encounter for health-related screening POCT GLYCATED HEMOGLOBIN, TOTAL Routine 11/17/2024 2:44 PM EDT Type 2 diabetes mellitus without complication, without long-term current use of insulin (CMS/HCC) BITEWINGS - 4 RADIOGRAPHIC IMAGES Routine 08/16/2024 3:00 PM EST Advanced periodontitis Dental calculus PERIODIC ORAL EVALUATION - ESTABLISHED PATIENT Routine 08/16/2024 3:00 PM EST INTRAORAL - COMPLETE SERIES OF RADIOGRAPHIC IMAGES Routine 12/14/2023 8:00 AM EDT from Last 3 Months or Most Recently Relevant to Health Maintenance Results * POCT Glucose (12/04/2024 2:19 PM EDT) Glucose Blood, POC 143 60 - 200 mg/dL QC Media Lot # [id number] Lot# Expiration Date Blood Capillary blood specimen / Unknown 12/04/2024 2:19 PM EDT Janell Toney [employer] POINT OF CARE TEST ENTER/EDIT O RDERABLES Final Result * Albumin, Random Urine W/Creatinine (12/01/2024 10:49 AM EDT) Creatinine, Urine 112.69 mg/dL [facility] Microalbumin Urine <5.0 mg/L [facility] Microalbum Creatinine Ratio Ur TNP <30 ug/mg cr [facility] Comment:Unable to calculate albumin/creatinine ratio due to lowmicroalbumin or creatinine result. 12/01/2024 10:4 9 AM EDT 12/01/2024 11:25 AM EDT us Generic External Data Provider LAB URINE ORDERAB LES Final Result [facility] [address] [place] [phone] * Hepatitis C Antibody with Reflex to HCV, RNA, Quantitative, Real-Time PCR (12/01/2024 10:49 AM EDT) Hepatitis C Antibody Nonreactive Nonreactive [facility] Comment:Antibodies to HCV no t detected; does not exclude early acuteHCV infection. Blood Venous blood specimen / Unknown 12/01/2024 10:49 AM EDT 12/01/2024 11:26 AM EDT [facility] [employer] LAB BLOOD ORDERABLES Final Resu lt Performing Organization Address City/[facility]/ZIP Co de Phone Number [facility] [address] [place] [phone] * Hepatitis B surface antigen, EIA (12/01/2024 10:49 AM EDT) Hepatitis B Surface Ag Negative Negative [facility] Blood Venous blood specimen / Unknown 12/01/2024 10:49 AM EDT 12/01/2024 11:26 AM EDT [facility] [employer] LAB BLOOD ORDERABLES Final Resu lt Performing Organization Address [facility] Co de Phone Number [facility] [address] [place] [phone] * Hepatitis B Core Antibody, Total (12/01/2024 10:49 AM EDT) Hepatitis B Core Antibody Nonreactive Nonreactive [facility] Blood Venous blood specimen / Unknown 12/01/2024 10:49 AM EDT 12/01/2024 11:26 AM EDT [facility] [employer] LAB BLOOD ORDERABLES Final Resu lt Performing Organization Address [facility] Co de Phone Number [facility] [address] [place] [address] [phone] * HIV-1/2 Antigen and Antibodies, Fourth Generation, with Reflexes (12/01/2024 10:49 AM EDT) HIV AB/AG Nonreactive Nonreactive [facility] Comment:HIV-1 p24 Ag and/or HIV-1/HIV-2 Ab not detected.A test result that is nonreactive does not exclude thepossibility of exposure to or infection with HIV-1 and/orHIV-2. Nonreactive results in this assay for individualswith prior exposure to HIV-1 and/or HIV-2 may be due toantigen and antibody levels that are below the limit ofdetection of this assay.The [employer] HIV Ag/Ab Combo assay result andsupplemental assay results should be interpreted inconjunction with the patient's clinical presentation,history and other laboratory results. If the results areinconsistent with clinical evidence, additional testing issuggested to confirm the result. Blood Venous blood specimen / Unknown 12/01/2024 10:49 AM EDT 12/01/2024 11:26 AM EDT [facility] LAB BLOOD ORDERABLES Final Resu lt Performing Organization Address [facility] Co de Phone Number [facility] [address] [place] [phone] * Hepatitis B Surface Antibody, Qualitative (12/01/2024 10:49 AM EDT) [facility] ~Hepatitis B Surface Antibody NONREACTIVE Nonreactive [facility] Comment:Nonreactive: < 8.00 mIU/mL Blood Venous blood specimen / Unknown 12/01/2024 10:49 AM EDT 12/01/2024 11:26 AM EDT JanellFormerly named [facility] LAB BLOOD ORDERABLES Final Resu lt Performing Organization Address [facility] Co de Phone Number [facility] [address] [place] [phone] * (ABNORMAL) Lipid Panel, Standard (12/01/2024 10:49 AM EDT) [facility] Triglycerides 150(H) <150 mg/dL [facility] Comment:Desirable Triglyceri de: less than 150 mg/dLBorderline High Triglyceride 150-199 mg/dLHigh Triglyceride: 200-499 mg/dLVery High Triglyceride: greater than or equal to 5OO mg/dL Cholesterol 228(H) <200 mg/dL [facility] Comment:Desirable Cholestero l: less than 200 mg/dLBorderline High Cholesterol: 200-239 mg/dLHigh Cholesterol: greater than 239 mg/dL LDL Cholesterol Calculated 136(H) <100 mg/dL [facility] Comment:Desirable LDL: less than 100 mg/dLNear Optimal/Above Optimal LDL: 110- 129 mg/dLBorderline High LDL: 130-159 mg/dLHigh LDL: 160-189 mg/dLVery High LDL: greater than or equal to 190 mg/dL HDL Cholesterol 62 >40 mg/dL [facility] Comment:Desirable HDL: great er than 40 mg/dL Note: This HDL assay may give artificially low results in patients with liver disease. 12/01/2024 10:4 9 AM EDT 12/01/2024 11:26 AM EDT us Generic External Data Provider LAB BLOOD ORDERAB LES Final Result [facility] [address] [place] [phone] * (ABNORMAL) Comprehensive Metabolic Panel (12/01/2024 10:49 AM EDT) Sodium 139 135 - 145 mmol/L [facility] Potassium 3.7 3.3 - 5.1 mmol/L [facility] Chloride 106 96 - 108 mmol/L [facility] Carbon Dioxide 28 22 - 29 mmol/L [facility] Anion Gap 9(L) 12 - 20 [facility] Urea Nitrogen (BUN) 11 9 - 16 mg/dL [facility] Creatinine, Serum 0.78 0.5 - 1.4 mg/dL [facility] Estimated Glomerular Filt Rate >60 [facility] Comment:Chronic Kidney Disea se: Estimated GFR < 60 mL/min/1.93x4Bsmwyl Kidney Disease: Estimated GFR < 15 mL/min/1.73m2 Glucose 111 60 - 115 mg/dL [facility] Calcium 9.3 8.4 - 10.2 mg/dL [facility] Bilirubin, Total 0.8 0.0 - 1.0 mg/dL [facility] Aspartate Amino Transferase 35 5 - 37 U/L [facility] Alanine Aminotransferase 35 0 - 40 U/L [facility] Total Protein 7.3 6.5 - 8.0 g/dL [facility] Albumin Level 4.4 3.5 - 5.0 g/dL [facility] Alkaline Phosphatase 60 39 - 117 U/L [facility] 12/01/2024 10:4 9 AM EDT 12/01/2024 11:26 AM EDT us Generic External Data Provider LAB BLOOD ORDERAB LES Final Result Performing Organization Address City/State/[facility] Co de Phone Number [facility] [address] [place] [phone] [phone] * (ABNORMAL) POCT A1C (11/17/2024 2:44 PM EDT) Hemoglobin A1C 14.4(A) 4.0 - 6.0 % Blood 11/17/2024 2:44 PM EDT Janell Toney NP POINT OF CARE TEST ENTER/EDIT O RDERABLES Final Result from Last 3 Months or Most Recently Relevant to Health Maintenance Insurance Asker HSN FULL DENTAL[facility] MEDICAID LIMITED ADULT DENTAL - HSN FULL (MEDICAID) Care Teams Cryogenics Engineer Relationship Specialty Start Date End Date Janell Toney NP [address] [place] [address] PCP - General Family Medicine 12/04/24 Anne Quiñones PharmD [address] [place] [address] Pharmacist Pharmacy 12/22/24
[2025-03-02 16:37] LABS: Alanine Aminotransferase 35 U/L (0-40); Albumin Level 4.6 g/dL (3.5-5.0); Alkaline Phosphatase 54 U/L (39-117); Aspartate Amino Transferase 39 U/L (5-37); Cholesterol 158 mg/dL (<200); HDL Cholesterol 64 mg/dL (>40); Total Protein 7.7 g/dL (6.5-8.0); Triglycerides 133 mg/dL (<150)
== END 2025-03-02 13:26 | disposition home or self-care (01) ==
LOC: HO.HHCL 13:25
PROVIDERS: PCP Nurse Practitioner; Visit Provider Nurse Practitioner
DX: E11.9 Type 2 diabetes mellitus without complications (principal); E78.2 Mixed hyperlipidemia
CPT/HCPCS: 36415; 80061; 80076

== ENCOUNTER 2025-04-02 11:13 | Outpatient (REF) | payer MEDICAID, OTHER, SELFPAY ==
[2025-04-02 13:16] LABS: MANUAL DIFF FLAG NO
[2025-04-02 13:30] LABS: Hematocrit 42.3 % (42.0-52.0); Hemoglobin 14.9 g/dl (14.0-18.0); Imm Gran Abs Auto 0.01 X10*3/uL (0.00-0.03); Imm Gran Pct Auto 0.1 % (0.0-0.4); Lymphocytes Absolute Auto 3.7 X10*3/uL (1.2-4.9); Mean Corpuscular HGB Conc 35.2 g/dl (31.0-36.0); Mean Corpuscular Hemoglobin 33.3 pg (27.0-33.0); Mean Corpuscular Volume 94.6 fL (80.0-98.0); NRBC Abs Auto 0.000 X10*3/uL (0.0-0.012); NRBC Pct Auto 0.0 /100WBC (0.0-0.2); Platelet Count 300 X10*3/uL (160-400); Red Blood Count 4.47 X10*6/uL (4.60-5.80); White Blood Count 7.3 X10*3/uL (4.8-10.8)
--- OUTSIDE RECORDS SUMMARY | 2025-04-02 13:49 | XMS_ITS | Clinical Summary ---
Author Organization [employer] Address [address] [facility] [address] [place] [address] Care Team Providers Care Medical Artist Name Role Phone Janell Toney NP Primary Care Provider [phone] Anne Quiñones PharmD Unavailable Allergies No known active allergies Medications Blood Pressure kitIndications:Kaylee vated blood pressure reading in office without diagnosis of hypertension 1 Units 2 times daily. 1 kit 11/18/19 25 Active Continuous Glucose Market Analyst (FreeStyle Alice 3 [place]) deviceIndications: Type 2 diabetes mellitus without complication, without long-term current use of insulin (HCC) 1 each Once per day. Use as directed for CGM 1 each 12/05/19 25 Active Continuous Glucose Sensor (FreeStyle Alice 3 Plus Sensor) miscIndications:Ty pe 2 diabetes mellitus without complication, without long-term current use of insulin (HCC) Apply 1 every 15 days as directed for CGM 2 each 12/05/19 25 Active Alcohol Swabs 70 % padsIndications:Ty pe 2 diabetes mellitus without complication, without long-term current use of insulin (HCC) Use to test blood sugar 3 times daily 100 each 12/23/19 25 Active Lancets miscIndications:Ty pe 2 diabetes mellitus without complication, without long-term current use of insulin ([facility]) Use to test blood sugar 2 times daily 100 each 12/23/19 25 Active metFORMIN (Glucophage) 500 MG tabletIndications: Type 2 diabetes mellitus without complication, without long-term current use of insulin (HCC) Take 1 tablet (500 mg) by mouth 2 times daily. 180 tablet 1 12/23/19 25 Active Additional Information Patient not taking.Reason: Pt stopped taking due to his glucose started to go too low. pt has not contacted his physician, Reported on 03/06/2025 insulin pen needle 32G x 4 mm miscIndications:Ty pe 2 diabetes mellitus without complication, without long-term current use of insulin ([facility]) Use to inject insulin 1 times daily 100 each 12/23/19 25 Active Dulaglutide (Trulicity) 0.75 MG/0.5ML solution auto-injectorIndic ations:Type 2 diabetes mellitus without complication, without long-term current use of insulin ([facility]) Inject 0.75 mg under the skin 1 (one) time per week. 2 mL 12/23/19 25 Active Additional Information Patient not taking.Reason: Pt stopped taking due to his glucose started to go too low. pt has not contacted his physician, Reported on 03/06/2025 insulin glargine (Lantus SoloStar) 100 UNIT/ML penIndications:Typ e 2 diabetes mellitus without complication, without long-term current use of insulin ([facility]) Inject 16 Units under the skin at bedtime. 15 mL 5 01/27/20 Active Additional Information Patient not taking.Reason: Pt stopped taking due to his glucose started to go too low. pt has not contacted his physician, Reported on 03/06/2025 atorvastatin (Lipitor) 10 MG tabletIndications: Mixed hyperlipidemia Take 1 tablet (10 mg) by mouth in the evening. 90 tablet 1 01/27/20 25 Active glucose blood (FREESTYLE LITE) test strip Use to test blood sugar 3 times daily 100 strip 03/06/20 25 Active glucose blood (FreeStyle Precision Armen Test) test stripIndications:T ype 2 diabetes mellitus without complication, without long-term current use of insulin ([facility]) Use to test blood sugar up to 2 times daily, as directed 100 each 12/23/19 25 025 Discontin ued(Alter yuko therapy) Active Problems Problem Noted Date Diagnosed Date Hypoglycemia 03/15/2025 Assessment & Plan (03/15/2025 11:05 AM EDT): -asymptomatic episodes of hypoglycemia w/o identifiable cause -advised to remain without use of all diabetes medications -recommend maintaining a journal of events recording both CGM and fingerstick glucose reading during times of hypoglycemia alarm, last meal/drink and activity. Bring journal to scheduled CDTM appt -ordered CBC to assess for possible infection/anemia/ extremely elevated hemaglobin & hematocrit -will consider testing for insulinoma and adrenal insufficiency pending lab results and continued unexplained hypoglycemia -patient verbalizes understanding and agrees with plan Obesity (BMI 30-39.9) 02/15/2025 Assessment & Plan [...] activity Mixed hyperlipidemia 02/15/2025 Assessment & Plan (03/15/2025 10:59 AM EDT): Images from the original note were not included. -recent lipid panel reveal improved lipid levels since initiation of statin -continue lipitor 10 mg nightly Assessment & Plan (02/15/2025 10:04 AM EDT): [...] Encounters Date Type Department Care Team Description 03/14/2025 3:30 PM EDT Office Visit [facility] [address] [place] [phone] Janell Toney NP Hypoglycemia (Primary Dx); Encounter for immunization; Mixed hyperlipidemia 03/14/2025 Travel 03/07/2025 Patient Outreach [facility] [address] [place] [address] Janell Toney NP Pre-visit Planning (SDOH was already complete) 03/06/2025 Telephone [facility] [address] [place] [phone] Janell Toney NP 03/06/2025 Travel 02/19/2025 3:00 PM EDT Office Visit [facility] [address] [place] [address] Gena Fuller Advanced periodontitis (Primary Dx); Localized gingival recession; Dental plaque 02/15/2025 Results Follow-Up [address] [address] Janell Toney NP Comprehensive Metabolic Panel, Lipid Panel, Standard, Albumin, Random Urine W/Creatinine, Additional followed-up results: 2 02/13/[address] [address] Janell Toney NP March01/26/2025 Travel 01/05/2025 10:30 AM EDT Clinical Support [address] [address] Sirena, Winifred, RN Type 2 diabetes mellitus without complication, without long-term current use of insulin ([facility]) [E11.9] 01/05/2025 Travel 01/03/2025 3:30 PM EDT Clinical Support [facility] [address] [place] [phone] Winifred Pack, LULU Encounter for immunization 01/03/2025 Travel from Last 3 Months Immunizations Immunization Administration Dates Next Due Hep B, adult 03/14/2025,01/03/2025,12/04/2024 Pneumococcal Conjugate PCV 20 01/26/2025 Tdap 01/26/2025 [...] Sign Reading Time Taken Comments Blood Pressure 130/86 03/14/2025 3:32 PM EDT Pulse 81 03/14/2025 3:32 PM EDT Temperature 36.7 C (98.1 F) 03/14/2025 3:32 PM EDT Respiratory Rate 20 03/14/2025 3:32 PM EDT Oxygen Saturation 95% 03/14/2025 3:32 PM EDT Inhaled Oxygen Concentration - - Weight 102 kg (224 lb 12.8 oz) 03/14/2025 3:32 P M EDT Height 165.1 cm (5' 5 ) 03/14/2025 3:32 PM EDT Body Mass Index 37.41 03/14/2025 3:32 PM EDT Plan of Treatment Upcoming Encounters Date Type Department Care Team (Late st Contact Info) Description 04/03/2025 3:30 PM EDT Medication Management [facility] [address] [place] [phone] Anne Quiñones, PharmD [address] [place] [address] 04/16/2025 2:30 PM EST Office Visit [facility] [address] [place] [phone] Janell Toney NP [address] [place] [address] 08/22/2025 2:15 PM EDT Office Visit [facility] [address] [place] [address] [place] [address] Serafin Fulleraris [address] [place] [address] Health Maintenance Due Date Last Done Comments Diabetes: Foot Exam 1990 Family Planning (PISQ) 1995 HPV Vaccines (1 - Male 3-dose series) 1995 COVID-19 Vaccine (1 - season) 2025 Influenza Vaccine (#1) 2025 Dental Oral Exam 02/17/2025 08/16/2024, 12/14/2023 Hepatitis B Vaccines (3 of 3 - 19+ 3-dose series) 06/05/2025 03/14/2025, 01/03/2025, 12/04/2024 Dental X-Ray: Bitewings 08/17/2025 08/17/19, 03/10/2024, 02/08/2024, Additional history exists Dental Prophylaxis 08/20/2025 02/19/2025, 0 08/16/2024, 12/29/2023 Diabetes: Hemoglobin A1C 09/03/2025 03/06/2025, 06/0 11/2024 Diabetes: Urine Protein Screening 12/01/2025 12/01/2024 Alcohol/Substance Use Screening 12/04/2025 12/04/2024 Depression Screening 12/04/2025 12/04/2024, 12/05/19 Disability Screening 12/04/2025 12/04/2024 SDOH Screening 12/04/2025 12/04/2024 Lipid Panel 03/02/2026 03/02/2025, 12/01/2024 Tobacco Screening 03/15/2026 03/15/2025 Dental X-Ray: Full Mouth 12/14/2026 12/14/2023, 06/0 12/2023 Eye Exam 12/25/2026 12/25/2024, 12/12, 12/25/2024, Additional history exists Zoster Vaccines (1 [...] Procedure Name Priority Date/Time Associated Diagnosis Comments CBC WITH AUTO DIFFERENTIAL Routine 04/02/2025 11:26 AM EDT Hypoglycemia POCT GLYCATED HEMOGLOBIN, TOTAL Routine 03/06/2025 4:21 PM EDT Type 2 diabetes mellitus without complication, without long-term current use of insulin ([facility]) LIPID PANEL, STANDARD Routine 03/02/2025 1:33 PM EDT HEPATIC FUNCTION PANEL Routine 03/02/2025 1:33 PM EDT ORAL HYGIENE INSTRUCTIONS Routine 02/19/2025 3:00 PM EDT Advanced periodontitis Localized gingival recession Dental plaque CASE PRESENTATION, DETAILED AND EXTENSIVE TREATMENT PLANNING Routine 02/19/2025 3:00 PM EDT Advanced periodontitis Localized gingival recession Dental plaque PROPHYLAXIS - ADULT Routine 02/19/2025 3 :00 PM EDT Advanced periodontitis Localized gingival recession Dental plaque HEPATITIS C AB W/REFL TO HCV RNA, QN, PCR Routine 12/01/2024 10:49 AM EDT Encounter for health-related screening HIV 1/2 ANTIGEN/ANTIBODY, FOURTH GENERATION W/RFL Routine 12/01/2024 10:49 AM EDT Encounter for health-related screening ALBUMIN, RANDOM URINE W/CREATININE Routine 12/01/2024 10:49 AM EDT BITEWINGS - 4 RADIOGRAPHIC IMAGES Routine 08/16/2024 3:00 PM EST Advanced periodontitis Dental calculus PERIODIC ORAL EVALUATION - ESTABLISHED PATIENT Routine 08/16/2024 3:00 PM EST INTRAORAL - COMPLETE SERIES OF RADIOGRAPHIC IMAGES Routine 12/14/2023 8:00 AM EDT from Last 3 Months or Most Recently Relevant to Health Maintenance Results * (ABNORMAL) CBC auto differential (04/02/2025 11:26 AM EDT) White Blood Count 7.3 4.8 - 10.8 X10*3/uL [facility] Red Blood Count 4.47(L) 4.60 - 5.80 X10*6/uL [facility] Hemoglobin 14.9 14.0 - 18.0 g/dl [facility] Hematocrit 42.3 42.0 - 52.0 % [facility] Mean Corpuscular Volume 94.6 80.0 - 98.0 fL [facility] Mean Corpuscular Hemoglobin 33.3(H) 27.0 - 33.0 pg [facility] Mean Corpuscular HGB Conc 35.2 31.0 - 36.0 g/dl [facility] Red Cell Distribution Width 12.5 11.0 - 16.0 % [facility] Platelet Count 300 160 - 400 X10*3/uL [facility] Mean Platelet Volume 10.3 9.4 - 12.4 fL [facility] Neutrophils Percent Auto 37.3(L) 45 - 73 % [facility] Imm Gran Pct Auto 0.1 0.0 - 0.4 % [facility] Lymphocytes Percent Auto 49.9(H) 20 - 40 % [facility] Monocytes Percent Auto 7.5 2 - 11 % [facility] Eosinophils Percent Auto 4.1(H) 0 - 4 % [facility] Basophils Percent Auto 1.1 0 - 2 % [facility] NRBC Pct Auto 0.0 0.0 - 0.2 /100WBC [facility] Neutrophils Absolute Auto 2.7 2.0 - 8.3 x10*3/uL [facility] Imm Gran Abs Auto 0.01 0.00 - 0.03 X10*3/uL [facility] Lymphocytes Absolute Auto 3.7 1.2 - 4.9 X10*3/uL [facility] Monocytes Absolute Auto 0.6 0.1 - 1.2 X10*3/uL [facility] Eosinophils Absolute Auto 0.3 0.0 - 0.4 X10*3/uL [facility] Basophils Absolute Auto 0.1 0.0 - 0.2 X10*3/uL [facility] NRBC Abs Auto 0.000 0.0 - 0.012 X10*3/uL [facility] Blood Venous blood specimen / Unknown 04/02/2025 11:26 AM EDT 04/02/2025 1:14 PM EDT Janell Pichardo TAG STRINGER LAB BLOOD ORDERABLES Final Resu lt [facility] [address] [place] [phone] * (ABNORMAL) POCT Hgb A1c (03/06/2025 4:21 PM EDT) Pathologist [facility] Hemoglobin A1C 6.1(A) 4.0 - 5.7 % Blood 03/06/2025 4:21 PM EDT Janell Toney TAG STRINGER POINT OF CARE TEST ENTER/EDIT O RDERABLES Final Result * (ABNORMAL) Hepatic Function Panel (03/02/2025 1:33 PM EDT) Bilirubin, Total 0.8 0.0 - 1.0 mg/dL [facility] Bilirubin, Direct 0.3 0.0 - 0.5 mg/dL [facility] Aspartate Amino Transferase 39(H) 5 - 37 U/L [facility] Alanine Aminotransferase 35 0 - 40 U/L [facility] Total Protein 7.7 6.5 - 8.0 g/dL [facility] Albumin Level 4.6 3.5 - 5.0 g/dL [facility] Alkaline Phosphatase 54 39 - 117 U/L [facility] 03/02/2025 1:33 PM EDT 03/02/2025 4:11 PM EDT Janell Pichardo TAG STRINGER LAB BLOOD ORDERABLES Final Resu lt Performing Organization Address City/[facility]/ZIP Co de Phone Number [facility] [address] [place] [address] [phone] * Lipid Panel, Standard (03/02/2025 1:33 PM EDT) Triglycerides 133 <150 mg/dL [facility] Comment:Desirable Triglyceri de: less than 150 mg/dLBorderline High Triglyceride 150-199 mg/dLHigh Triglyceride: 200-499 mg/dLVery High Triglyceride: greater than or equal to 5OO mg/dL Cholesterol 158 <200 mg/dL [facility] Comment:Desirable Cholestero l: less than 200 mg/dLBorderline High Cholesterol: 200-239 mg/dLHigh Cholesterol: greater than 239 mg/dL LDL Cholesterol Calculated 68 <100 mg/dL [facility] Comment:Desirable LDL: less than 100 mg/dLNear Optimal/Above Optimal LDL: 110- 129 mg/dLBorderline High LDL: 130-159 mg/dLHigh LDL: 160-189 mg/dLVery High LDL: greater than or equal to 190 mg/dL HDL Cholesterol 64 >40 mg/dL [facility] Comment:Desirable HDL: great er than 40 mg/dL Note: This HDL assay may give artificially low results in patients with liver disease. 03/02/2025 1:33 PM EDT 03/02/2025 4:11 PM EDT Janell Marino TAG STRINGER LAB BLOOD ORDERABLES Final Resu lt [facility] [address] [place] [address] [phone] * Albumin, Random Urine W/Creatinine (12/01/2024 10:49 AM EDT) Creatinine, Urine 112.69 mg/dL [facility] Microalbumin Urine <5.0 mg/L [facility] Microalbum Creatinine Ratio Ur TNP <30 ug/mg cr [facility] Comment:Unable to calculate albumin/creatinine ratio due to lowmicroalbumin or creatinine result. 12/01/2024 10:4 9 AM EDT 12/01/2024 11:25 AM EDT Generic External Data Provider LAB URINE ORDERAB LES Final Result Performing Organization Address [facility] Co de Phone Number [facility] [address] [place] [address] [phone] * Hepatitis C Antibody with Reflex to HCV, RNA, Quantitative, Real-Time PCR (12/01/2024 10:49 AM EDT) Hepatitis C Antibody Nonreactive Nonreactive [facility] Comment:Antibodies to HCV no t detected; does not exclude early acuteHCV infection. Blood Venous blood specimen / Unknown 12/01/2024 10:49 AM EDT 12/01/2024 11:26 AM EDT Janell Toney TAG STRINGER LAB BLOOD ORDERABLES Final Resu lt Performing Organization Address City/[facility] Co de Phone Number [facility] [address] [place] [address] [phone] * HIV-1/2 Antigen and Antibodies, Fourth Generation, with Reflexes (12/01/2024 10:49 AM EDT) HIV AB/AG Nonreactive Nonreactive [facility] Comment:HIV-1 p24 Ag and/or HIV-1/HIV-2 Ab not detected.A test result that is nonreactive does not exclude thepossibility of exposure to or infection with HIV-1 and/orHIV-2. Nonreactive results in this assay for individualswith prior exposure to HIV-1 and/or HIV-2 may be due toantigen and antibody levels that are below the limit ofdetection of this assay.[employer] HIV Ag/Ab Combo assay result andsupplemental assay results should be interpreted inconjunction with the patient's clinical presentation,history and other laboratory results. If the results areinconsistent with clinical evidence, additional testing issuggested to confirm the result. Blood Venous blood specimen / Unknown 12/01/2024 10:49 AM EDT 12/01/2024 11:26 AM EDT Janell Toney NP LAB BLOOD ORDERABLES Final Resu lt [facility] [address] [place] [address] [phone] from Last 3 Months or Most Recently Relevant to Health Maintenance Insurance [facility] FULL D[facility] [employer] ADULT DENTAL - HSN FULL (MEDICAID) Care Teams Medical Artist Relationship Specialty Start Date End Date Janell Toney NP [address] [place] [address] PCP - General Family Medicine 12/04/24 Anne Quiñones PharmD [address] [place] [address] Pharmacist Pharmacy 12/22/24
--- OUTSIDE RECORDS SUMMARY | 2025-04-02 13:49 | XMS_ITS | Clinical Summary ---
Author Organization [address] [facility] Address [address] [place] [address] Phone Care Team Providers Care Felt Hat Inspector And Packer Name Role Phone Physician, Pcp Unknown Primary [...] days. 70 g 3 5 03/21/20 25 Encounters Date Type Department Care Team Description 02/21/2025 2:45 PM EDT Consult Orthopedic Surgery [facility] [address] [phone] Felipe Wyman, DPM Tinea pedis of [...] 1990 Diabetes: Annual Retina Eye Exam 1990 HPV Vaccines (1 - 3-dose SCD M series) 2007 Depression Screening 06/14/2024 Social Influencers of Health Screening 11/22/2024 COVID-19 Vaccine ( - 2023-2 5 season) 2025 Influenza Vaccine (#1) 2025 [...] topic Insurance MEDICAID - [place] Care Teams Felt Hat Inspector And Packer Relationship Specialty Start Date End Date Physician, Pcp Unknown PCP - General 11/22/24
== END 2025-04-02 11:14 | disposition home or self-care (01) ==
LOC: HO.HHCL 11:13
PROVIDERS: PCP Nurse Practitioner; Visit Provider Nurse Practitioner
DX: E16.2 Hypoglycemia, unspecified (principal)
CPT/HCPCS: 36415; 83036; 85025

== ENCOUNTER 2025-04-30 11:55 | Outpatient (REF) | payer MEDICAID, OTHER, SELFPAY ==
[2025-04-30 16:32] LABS: Anion Gap 10 (12-20); Blood Urea Nitrogen 14 mg/dL (9-16); Calcium 9.5 mg/dL (8.4-10.2); Carbon Dioxide 29 mmol/L (22-29); Chloride 104 mmol/L (96-108); Estimated Glomerular Filt Rate > 60; Potassium 4.0 mmol/L (3.3-5.1); Sodium 139 mmol/L (135-145)
== END 2025-04-30 11:56 | disposition home or self-care (01) ==
LOC: HO.HHCL 11:55
PROVIDERS: PCP Nurse Practitioner; Visit Provider Nurse Practitioner
DX: I10 Essential (primary) hypertension (principal)
CPT/HCPCS: 36415; 80048